=== PATIENT | female | born 1935 | race Caucasian/White ===

== ENCOUNTER 2016-04-09 09:20 | Inpatient (IN) | payer OTHER, MEDICARE ==
[~2016-04-09] VITALS: Ht 162.6 cm; Wt 74.9 kg
--- NOTE | 2016-04-09 09:26 | ED GI/GU/ABDOMINAL COMPLAINT ---
History of Present Illness General Chief Complaint: General Adult Stated Complaint: BIBA FOR DIARRHEA Source: patient, family, old records, EMS Exam Limitations: no limitations Triage Nurses Notes Reviewed? yes ? n Is pt currently ? No Onset: Abrupt Duration: day(s): (3), constant Timing: recent history Quality/Severity: cramping Severity Numbers: 6 Location: generalized abdomen Radiation: no radiation Activities at Onset: none No Modifying Factors: none Associated Symptoms: lightheadedness HPI: 81 year old female history of hypertension, coronary artery disease, hyperlipidemia, GERD, bipolar disorder, Parkinson's, psoriasis presents brought in by an once from assisted living after she's had multiple episodes of diarrhea for the past 3 days having at least 2-3 episodes a day. She denies any black or bloody stools she reports a crampy abdominal pain associated with the diarrhea, denies pain at this time. There is no nausea no vomiting. Patient denies fever chills cough and congestion chest pain shortness of breath. There are no modifying factors or associated symptoms or recent antibiotic use. No sick contacts with similar symptoms. Abdominal history significant for cholecystectomy. Pain is nonradiating associated with lightheadedness (SURESH ARROYO) Vital Signs & Intake/Output Vital Signs & Intake/Output Vital Signs Date Time Temp Pulse Resp B/P Pulse O2 O2 Flow FiO2 Ox Delivery Rate 04/09 1258 99.7 04/09 1254 99.7 97 18 106/56 96 Room Air 04/09 1108 99.8 04/09 1100 99.8 93 15 104/56 97 Room Air Room Air 04/09 1057 97 Room Air Room Air 04/09 0955 101.4 94/56 04/09 0930 99.9 108 18 99/52 100 Nasal 2.0L Cannula Allergies Coded Allergies: adhesive tape (UNKNOWN 04/09/16) codeine (UNKNOWN 04/09/16) hydrocortisone (UNKNOWN 04/09/16) prednisone (UNKNOWN 04/09/16) Reconcile Medications Aspirin (Aspirin*) 81 MG TAB.CHEW 1 TAB PO DAILY HEART HEALTH (Reported) Atorvastatin Calcium (Lipitor) 20 MG TABLET 1 TAB PO QPM CHOLESTEROL ( Reported) Carbidopa/Levodopa (Sinemet Cr 50-200 Tablet) 50 MG-200 MG TABLET.ER 1 TAB PO TID PARKINSONS (Reported) Donepezil HCl (Aricept) 10 MG TABLET 1 TAB PO QPM DEMENTIA (Reported) Gabapentin (Neurontin) 400 MG CAPSULE 1 CAP PO TID UNKNOWN (Reported) Lamotrigine (Lamictal) 200 MG TABLET 1 TAB PO BID UNKNOWN (Reported) Levetiracetam (Keppra) 250 MG TABLET 1 TAB PO DAILY SEIZURES (Reported) Linaclotide (Linzess) 145 MCG CAPSULE 1 CAP PO DAILY GI (Reported) Lorazepam (Ativan) 0.5 MG TABLET 1 TAB PO DAILY ANXIETY (Reported) Memantine HCl (Namenda) 5 MG TABLET 1 TAB PO BID DEMENTIA (Reported) Omeprazole 40 MG CAPSULE.DR 1 CAP PO DAILY GI (Reported) Quetiapine Fumarate (Seroquel) 400 MG TABLET 1 TAB PO QPM SLEEP (Reported) Quetiapine Fumarate (Seroquel) 100 MG TABLET 2 TAB PO QPM SLEEP (Reported) Quetiapine Fumarate (Seroquel) 25 MG TABLET 1 TAB PO TIDPRN PRN MOOD ( Reported) Ziprasidone HCl (Geodon) 80 MG CAPSULE 1 CAP PO DAILY UNKNOWN (Reported) (STARLA VELA,SHE Nunes) Past History Travel History Traveled to [place] past 21 day No Medical History Any Pertinent Medical History? see below for history Neurological: dementia, Parkinson's disease Cardiovascular: CAD, hypertension Influenza Vaccine: 11/11/10 Surgical History Surgical History: cholecystectomy Psychosocial History Who do you live with Spouse Services at Home None What is your primary language Georgian Family History Hx Contributory? No (SURESH ARROYO) Review of Systems Review of Systems Constitutional: Reports: no symptoms, see HPI. All Other Systems: Reviewed and Negative Comments Review of systems: See HPI, All other systems negative. Constitutional, no chills no fever, no malaise HEENT: No visual changes no sore throat no congestion Cardiovascular: No chest pain , no palpitation , Skin, no jaundice no rashes, no change in skin Respiratory: No dyspnea no cough no sputum no hemoptysis GI: No nausea no vomiting, diarrhea, no bloating/constipation : No dysuria No hematuria, no frequency, no discharge Muscle skeletal: No joint pain, no joint swelling, no back pain, no neck pain, Neurologic:no headache Psych: No stress Heme/endocrine: No bruising no bleeding Immunology: No lymphadenopathy (SURESH ARROYO) Physical Exam Physical Exam General Appearance: well developed/nourished, alert, awake Gastrointestinal: soft, non-tender Comments: Well-developed well-nourished person in no acute distress HEENT: Normal EENT exam; PERRL, EOMI, no nystagmus. HEAD is atraumatic. moist mucous membranes. Neck: Supple, normal range of motion without pain or tenderness Back: Nontender, no CVA tenderness. Full range of motion Cardiovascular: Regular rate and rhythms no murmurs rubs Respiratory: Chest nontender.There were no bony deformities, no asymmetry. No respiratory distress. Patient speaking in full complete sentences. Breath sounds clear to auscultation bilaterally: NO W/R/R Abdomen: Soft, nontender nondistended, no appreciable organomegaly. Normal bowel sounds. No rebound/guarding, No appreciable enlargement of the abdominal aorta, No ascites. Rectal: Nontender. Heme negative stool. No mass/hemorrhoid, no fissure. Extremity: No edema, full range of motion of extremities, normal and equal pulses bilaterally, 5 out of 5 strength noted to bilateral upper and lower extremities Neuro: Alert oriented x3, motor sensory normal, There were no obvious focal neurologic abnormalities. Skin: No appreciable rash on exposed skin, skin is warm and dry. Psych: Mood and affect is normal, memory and judgment is normal. Core Measures ACS in differential dx? No Severe Sepsis Present: Yes BC x2: Yes Lactic Acid x2: Yes IV ABX Broad Spectrum: Yes NS/LR Started: Yes Septic Shock Present: No (DEMETRIA JAMES,SURESH) Progress Differential Diagnosis: AAA, appendicitis, biliary colic, bowel obstruction, colon cancer, diverticulitis, gastritis, hepatitis, ischemic bowel, inflamm bowel dis, kidney stone, pancreatitis, malignancy, cdiff, colitis, diverticulitis, dehydration, electrolyte abnoramlity Diagnostic Imaging: Viewed by Me: CT Scan. Discussed w/RAD: CT Scan. Radiology Impression: PATIENT: TANMAY BAUER PRESENT AGE: 81 PATIENT ACCOUNT NO: [id number] : 36 LOCATION: [facility] ORDERING PHYSICIAN: SURESH JAMES SERVICE DATE: 04/09/16 EXAM TYPE: CAT - CT ABD & PELVIS W/O IV CONTRAS EXAMINATION: CT ABDOMEN AND PELVIS WITHOUT CONTRAST CLINICAL INFORMATION: Diarrhea. COMPARISON: 04/29/[address] TECHNIQUE: Multidetector volumetric imaging was performed from the superior aspect of the liver through the pubic symphysis. Sagittal and coronal reformatted images were obtained on the technologist's workstation. DLP: 395 mGy -cm FINDINGS: LUNG BASES: Trace right pleural and pericardial effusion. LIVER, GALLBLADDER, AND BILIARY TREE: Pneumobilia status post cholecystectomy and sphincterotomy. There is a 6.7 cm cyst in the right hepatic lobe and a 3.4 cm cyst in the left hepatic lobe, both of which measure simple fluid density. There is a subcentimeter subcapsular hypodensity of the left lobe which is too small to characterize although likely represents a cyst as well. Multiple surgical clips in the gallbladder fossa. The common bile duct measures 1.3 cm in diameter likely due to the post cholecystectomy state and patient age. Ductal dilatation has slightly decreased since 04/29/2011. No intraluminal filling defects are demonstrated. PANCREAS: Unremarkable. SPLEEN: Unremarkable. ADRENAL GLANDS: Unremarkable. KIDNEYS AND URETERS: There is a 2.6 cm simple fluid density cyst at the upper pole of the left kidney. No hydronephrosis. No renal or ureteral calculi. BLADDER: Unremarkable. GASTROINTESTINAL TRACT: Diffuse fluid-filled small and large bowel loops. No bowel dilatation to suggest obstruction. No focal inflammatory process. ABDOMINAL WALL: Calcification of presumed hernia repair mesh of the upper abdomen. This is located just distal to a 10 mm defect in the midline ventral abdominal wall where there is herniation of fat measuring approximately 3.6 x 3.8 x 1.4 cm. No inflammatory stranding or sign of complication. This is similar to the previous study. LYMPH NODES: Normal. VASCULAR: Atherosclerotic calcifications of the abdominal aorta. PELVIC VISCERA: The uterus is absent. OSSEOUS STRUCTURES: No suspicious bone lesions. Advanced facet arthropathy of the distal lumbar spine. No acute osseous abnormality. IMPRESSION: Small and large bowel loops are diffusely fluid filled with no dilatation to suggest obstruction. No focal inflammatory process. DICTATED BY: ANGELA PARK MD DATE/TIME DICTATED:04/09/161108 LEARNING AND DEVELOPMENT ADMINISTRATOR: VLADIMIR DATE/TIME TRANSCRIBED:04/09/161108 CONFIDENTIAL, DO NOT COPY WITHOUT APPROPRIATE AUTHORIZATION. <Electronically signed in Other Vendor System> SIGNED BY: ANGELA PARK MD 04/09/16 1136 Initial ED EKG: SINUS TACH AT 100, NONSPECIFIC st SEGMENT CHANGES NORMAL AXIS Prior EKG: unchanged (04/2011) Rhythm Strip: sinus tachycardia (SURESH ARROYO) Plan of Care: Orders Procedure Date/time Status Nothing by Mouth 04/09 D Active Admit to inpatient 04/09 1401 Active TRC EVALUATION (GEN) 04/09 1356 Active OXYGEN SETUP (GEN) 04/09 1356 Active Pathway - chart 04/09 1356 Active House Staff 04/09 1356 Active Patient Data 04/09 1356 Active Code Status 04/09 1356 Active Patient Data 04/09 1334 Active Add-on Test (ER Only) 04/09 1327 Active LACTIC ACID 04/09 1225 Complete RAPID VIRAL INFLUENZA A 04/09 1046 Complete MAGNESIUM 04/09 1042 Complete BLOOD CULTURE 04/09 1005 Active URINALYSIS 04/09 1005 Complete PARTIAL THROMBOPLASTIN TIME 04/09 0926 Complete PROTHROMBIN TIME 04/09 0926 Complete Saline Lock 04/09 0925 Active CULTURE,STOOL 04/09 0925 Active C.DIFFICILE 04/09 0925 Active TROPONIN LEVEL 04/09 0925 Complete LACTIC ACID 04/09 0925 Complete COMPREHENSIVE METABOLIC PANEL 04/09 0925 Complete CBC WITHOUT DIFFERENTIAL 04/09 0925 Complete EKG 04/09 0925 Active VTE Mechanical Prophylaxis 04/09 UNK Active Vital Signs 04/09 UNK Active MISTAKE 04/09 UNK Active Telemetry/[employer] Operator 04/09 UNK Active Intake & Output 04/09 UNK Active Hemoccult 04/09 UNK Active Laboratory Tests 04/09/16 1239: Lactic Acid 1.8 04/09/16 1042: Anion Gap 14, Estimated GFR 53 L, BUN/Creatinine Ratio 56.0 H, Glucose 132 H, Lactic Acid 2.3 H, Calcium 8.6, Magnesium 1.5 L, Total Bilirubin 0.5, AST 28, ALT 23, Alkaline Phosphatase 50, Troponin I 0.05, Total Protein 5.6 L, Albumin 3.4 L, Globulin 2.2, Albumin/Globulin Ratio 1.5 04/09/16 1000: PT 13.0 H, INR 1.24 H, APTT 29, CBC w Diff MAN DIFF ORDERED, RBC 4.05 L, MCV 93.5, MCH 31.1 H, RDW 15.3 H, MPV 8.1, Gran % 84.6 H, Lymphocytes % 3.7 L, Monocytes % 11.6 H, Eosinophils % 0, Basophils % 0.1, Absolute Granulocytes 6.5 , Segmented Neutrophils 34 L, Band Neutrophils 34 H, Absolute Lymphocytes 0.3 L, Lymphocytes 9 L, Monocytes 16 H, Absolute Monocytes 0.9 H, Absolute Eosinophils 0, Absolute Basophils 0, Metamyelocytes 6 H, Myelocytes 1 H, Platelet Estimate ADEQUATE, Normochromic RBCs VERIFIED, Poikilocytosis 1+, Jose Cells RARE, Schistocytes RARE, PUBS MCHC 33.3, Fld Total RBCs Counted 100, Urinalysis LIGHT H, Urine Color YEL, Urine Clarity CLEAR, Urine pH 6.0, Ur Specific [place] >= 1.030, Urine Protein 30 H, Urine Ketones TRACE H, Urine Nitrite NEG, Urine Bilirubin NEG, Urine Urobilinogen 0.2, Ur Leukocyte Esterase NEG, Ur Microscopic SEDIMENT EXAMINED, Urine RBC RARE, Urine Bacteria FEW H, Hyaline Casts RARE H, Urine Mucus FEW, Urine Hemoglobin NEG, Urine Glucose NEG Microbiology 04/09 1104 NASOPHARYN: Influenza Virus A & B Rapid Smear - COMP 04/09 1042 BLOOD: Blood Culture - RECD 04/09 1000 STOOL: Clostridium difficile Toxin A & B - RECD 04/09 1000 STOOL: Stool Culture - RECD 04/09 1000 BLOOD: Blood Culture - RECD Labs ordered old records reviewed IV fluids ordered Case discussed with Dr. Marie who evaluated the patient agrees with plan, given bandemia, fever Tylenol IV Rocephin and Flagyl IV ordered. I discussed the patient and her family at length all her results today pending CAT scan Case is discussed the hospitalist will admit, discussed the patient's family her CT results need for nothing by mouth status IV fluids patient resting couplets time she has not had any further episodes of diarrhea here in the department (DEMETRIA JAMES,SURESH) Comments: 04/09/2016 11:01:49 AM patient's blood pressure has normalized with IV fluid. (STARLA VELA,SHE Nunes) Departure Departure Time of Disposition: 1239 Disposition: STILL A PATIENT Condition: Stable Clinical Impression Primary Impression: Diarrhea Secondary Impressions: Bandemia, Lactic acidosis Referrals: NATI SANTORO MD (PCP/Family) Departure Forms: Customer Survey General Discharge Information Admission Note Spoke With: SAUMYA VELA,RASHAD De Santiago Documentation of Exam: Documentation of any treatments & extenuating circumstances including Concerns Regarding Discharge (functional status, medication knowledge or non-compliance, living conditions, etc.) that warrant an admission rather than observation: [ Trend labs stool cultures C. difficile IV antibiotics IV fluids premature discharge would BE medically harmful (SURESH ARROYO) PA/ROCK DUSTER Co-Sign Statement Statement: ED Attending supervision documentation- [X] I saw and evaluated the patient. I have also reviewed all the pertinent lab results and diagnostic results. I agree with the findings and the plan of care as documented in the PA's/ROCK DUSTER's documentation. [] I have reviewed the ED Record and agree with the PA's/ROCK DUSTER's documentation. [] Additions or exceptions (if any) to the PAs/ROCK DUSTER's note and plan are summarized below: [] (STARLA VELA,SHE Nunes) ED Sepsis Exam Date of Focused Sepsis Exam: 04/09/16 Time of Focused Sepsis Exam: 1240 Sepsis Cardiac Exam: Tachycardia Sepsis Resp Exam: CTA Sepsis Cap Refill Exam: <2 Sec Sepsis Peripheral Pulse Exam: Normal Sepsis Peripheral Pulse Location: Radial Sepsis Skin Color Exam: Normal for Ethnicity Skin Temp/Moisture Exam: Warm/Dry (SURESH ARROYO)
[2016-04-09] MEDS ORDERED: ARICEPT10 M1 PO (09:37)
[2016-04-09] MEDS ORDERED: NAMENDA5 M1 PO (09:37)
[2016-04-09] MEDS ORDERED: SINEMET CR 50-1 EACH PO (09:38)
[2016-04-09] MEDS ORDERED: NEURONTIN400 M1 PO (09:38)
[2016-04-09] MEDS ORDERED: KEPPRA250 M1 PO (09:39)
[2016-04-09] MEDS ORDERED: GEODON80 MG PO (09:39)
[2016-04-09] MEDS ORDERED: ATIVAN0.5 M1 PO (09:39)
[2016-04-09] MEDS ORDERED: LIPITOR20 M2 PO (09:40)
[2016-04-09] MEDS ORDERED: LAMICTAL200 M1 PO ×2 (09:40→15:53)
[2016-04-09] MEDS ORDERED: ASPIRIN81 M4 PO (09:40)
[2016-04-09] MEDS ORDERED: OMEPRAZOLE40 M1 PO (09:41)
[2016-04-09] MEDS ORDERED: SEROQUEL400 M1 PO (09:41)
[2016-04-09] MEDS ORDERED: LINZESS145 MC1 PO (09:41)
[2016-04-09] MEDS ORDERED: SEROQUEL100 M1 PO (09:42)
[2016-04-09] MEDS ORDERED: SEROQUEL25 M1 PO (09:42)
[2016-04-09 10:20] LABS: ABSOLUTE BASOPHIL COUNT 0 /CUMM (0.0-0.2); ABSOLUTE EOSINOPHIL COUNT 0 /CUMM (0.0-0.7); ABSOLUTE GRANULOCYTE CT 6.5 /CUMM (1.4-6.5); ABSOLUTE LYMPH COUNT 0.3 /CUMM (1.2-3.4); ABSOLUTE MONOCYTE COUNT 0.9 /CUMM (0.10-0.60); BASOPHIL % 0.1 % (0.0-2.0); EOSINOPHIL % 0 % (0-5); GRANULOCYTE % 84.6 % (42.2-75.2); HEMATOCRIT 37.9 % (37-47); MEAN CORPUSCULAR HGB 31.1 PG (27.0-31.0); MEAN CORPUSCULAR HGB CONC 33.3 G/DL (33.0-37.0); MEAN CORPUSCULAR VOLUME 93.5 FL (81.0-99.0); MEAN PLATELET VOLUME 8.1 FL (7.4-10.4); PLATELET COUNT 220 /CUMM (130-400); RBC DISTRIBUTION WIDTH 15.3 % (11.5-14.5); RED BLOOD CELL CT 4.05 /CUMM (4.20-5.40); WHITE BLOOD CELL COUNT 7.7 /CUMM (4.8-10.8)
[2016-04-09 10:35] LABS: PTT 29 SEC (25-37)
--- NOTE | 2016-04-09 11:36 | CT SCAN REPORT ---
EXAMINATION: CT ABDOMEN AND PELVIS WITHOUT CONTRAST CLINICAL INFORMATION: Diarrhea. COMPARISON: 04/29/[address] TECHNIQUE: Multidetector volumetric imaging was performed from the superior aspect of the liver through the pubic symphysis. Sagittal and coronal reformatted images were obtained on the technologist's workstation. DLP: 395 mGy-cm FINDINGS: LUNG BASES: Trace right pleural and pericardial effusion. LIVER, GALLBLADDER, AND BILIARY TREE: Pneumobilia status post cholecystectomy and sphincterotomy. There is a 6.7 cm cyst in the right hepatic lobe and a 3.4 cm cyst in the left hepatic lobe, both of which measure simple fluid density. There is a subcentimeter subcapsular hypodensity of the left lobe which is too small to characterize although likely represents a cyst as well. Multiple surgical clips in the gallbladder fossa. The common bile duct measures 1.3 cm in diameter likely due to the post cholecystectomy state and patient age. Ductal dilatation has slightly decreased since 04/29/2011. No intraluminal filling defects are demonstrated. PANCREAS: Unremarkable. SPLEEN: Unremarkable. ADRENAL GLANDS: Unremarkable. KIDNEYS AND URETERS: There is a 2.6 cm simple fluid density cyst at the upper pole of the left kidney. No hydronephrosis. No renal or ureteral calculi. BLADDER: Unremarkable. GASTROINTESTINAL TRACT: Diffuse fluid-filled small and large bowel loops. No bowel dilatation to suggest obstruction. No focal inflammatory process. ABDOMINAL WALL: Calcification of presumed hernia repair mesh of the upper abdomen. This is located just distal to a 10 mm defect in the midline ventral abdominal wall where there is herniation of fat measuring approximately 3.6 x 3.8 x 1.4 cm. No inflammatory stranding or sign of complication. This is similar to the previous study. LYMPH NODES: Normal. VASCULAR: Atherosclerotic calcifications of the abdominal aorta. PELVIC VISCERA: The uterus is absent. OSSEOUS STRUCTURES: No suspicious bone lesions. Advanced facet arthropathy of the distal lumbar spine. No acute osseous abnormality. IMPRESSION: Small and large bowel loops are diffusely fluid filled with no dilatation to suggest obstruction. No focal inflammatory process.
--- NOTE | 2016-04-09 13:56 | History & Physical ---
NIYAH DE LA TORRE MD 04/09/16 1356: General Information and HPI MD Statement: I have seen and personally examined TANMAY MORENO and documented this H&P. The patient is a 81 year old F who presented with a patient stated chief complaint of diarrhea and vomiting. Source of Information: patient, family, old records Exam Limitations: dementia, poor historian History of Present Illness: Ms. Moreno is a pleasant 81 year old female with PMH Parkinson's dementia, anxiety disorder, history of restless leg syndrome, HTN, HLD, CAD and GERD who was brought in from her assisted living facility with chief complaint of nausea, vomiting and diarrhea. History is limited secondary to history of Parkinson's dementia and daughter who is present in the room is only able to provide occasional information. Patient and daughter note that on Saturday, patient had two episodes of nausea and non-bloody emesis in the morning. This progressed to generalized abdominal cramping with two further episodes of vomiting. Her facility placed her on the BRAT diet but patient then began to have copious, non-bloody diarrhea. Paige reports that the diarrhea was continuous, patient woke up this morning in it and it even fell down her legs as she attempted to ambulate. There is no history of recent antibiotic use, recent change in medications, sick contacts or new food intake. Associated symptoms at time of presentation include anxiety, nausea, generalized abdominal cramping, bloating, the prior 4 episodes of vomiting, persistent diarrhea and fever. Patient currently denies chills, dizziness, dehydration, chest pain, palpitations, shortness of breath, sputum production, dysuria, hematuria or bloody stool. Social history is negative for alcohol or illicit drug use. Patient quit smoking years ago and only smoked 1/2 ppd for about 4 years in total. Patient lives at her assisted-living facility and requires assistance with some of her ADLs. Patient sees Dr. Boone as her neurologist and has seen Dr. Mcadams in the past for cardiac issues. Allergies/Medications Allergies: Coded Allergies: adhesive tape (UNKNOWN 04/09/16) codeine (UNKNOWN 04/09/16) hydrocortisone (UNKNOWN 04/09/16) prednisone (UNKNOWN 04/09/16) Compliance With Home Meds: UNKNOWN Past History Travel History Traveled to [place] past 21 day No Medical History Neurological: dementia, Parkinson's disease Cardiovascular: CAD, hypertension Psychiatric: anxiety depression Influenza Vaccine: 11/11/10 Surgical History Surgical History: cholecystectomy Past Family/Social History Psychosocial History Where do you live? Assisted Living Who Do You Live With? self Services at Home: None Primary Language: Czech Smoking Status: Former Smoker ETOH Use: denies use Illicit Drug Use: denies illicit drug use Living Will? yes Review of Systems Review of Systems Constitutional: Reports: fever, malaise. Denies: chills, unexplained weight loss. EENTM: Denies: visual changes, hearing changes, nasal congestion. Cardiovascular: Denies: chest pain, orthopena, palpitations, syncope. Respiratory: Denies: cough, short of breath, sputum production. GI: Reports: abdominal pain, bloating, diarrhea. Denies: constipation. Genitourinary: Denies: dysuria, hematuria, pain. Musculoskeletal: Denies: back pain. Skin: Denies: lesions, rash. Neurological/Psychological: Reports: anxiety, dementia. Denies: headache, numbness, paresthesia. Hematologic/Endocrine: Denies: polyuria, polydipsia. Immunologic/Allergic: Denies: splenectomy. All Other Systems: Reviewed and Negative Exam & Diagnostic Data Last 24 Hrs of Vital Signs/I&O Vital Signs Date Time Temp Pulse Resp B/P Pulse O2 O2 Flow FiO2 Ox Delivery Rate 04/09 1428 105 18 118/57 98 Room Air 04/09 1258 99.7 04/09 1254 99.7 97 18 106/56 96 Room Air 04/09 1108 99.8 04/09 1100 99.8 93 15 104/56 97 Room Air Room Air 04/09 1057 97 Room Air Room Air 04/09 0955 101.4 94/56 04/09 0930 99.9 108 18 99/52 100 Nasal 2.0L Cannula Intake & Output 04/09 1600 04/09 0800 04/09 0000 Intake Total Output Total 300 Balance -300 Output, Urine 300 Physical Exam General Appearance Alert, Oriented X3, Cooperative, No Acute Distress Skin No Rashes, No Significant Lesion HEENT Atraumatic, PERRLA, EOMI, Dry mucous membranes Neck Supple, No thryomegaly, +2 Carotid Pulse wo Bruit Lymphatic Cervical nl Cardiovascular Regular Rate, Normal S1, Normal S2 Lungs Clear to Auscultation, Normal Air Movement Abdomen Normal Bowel Sounds, Mildly distended, + tenderness in epigastric and RLQ, no massess or fluctuance. Neurological Normal Speech, Normal Tone Extremities No Clubbing, No Cyanosis, No Edema, No Tenderness/Swelling Vascular Pulses Symmetrical Last 24 Hrs of Labs/[place]: Laboratory Tests 04/09/16 1239: Lactic Acid 1.8 04/09/16 1042: Anion Gap 14, Estimated GFR 53 L, BUN/Creatinine Ratio 56.0 H, Glucose 132 H, Lactic Acid 2.3 H, Calcium 8.6, Magnesium 1.5 L, Total Bilirubin 0.5, AST 28, ALT 23, Alkaline Phosphatase 50, Troponin I 0.05, Total Protein 5.6 L, Albumin 3.4 L, Globulin 2.2, Albumin/Globulin Ratio 1.5 04/09/16 1000: PT 13.0 H, INR 1.24 H, APTT 29, CBC w Diff MAN DIFF ORDERED, RBC 4.05 L, MCV 93.5, MCH 31.1 H, RDW 15.3 H, MPV 8.1, Gran % 84.6 H, Lymphocytes % 3.7 L, Monocytes % 11.6 H, Eosinophils % 0, Basophils % 0.1, Absolute Granulocytes 6.5 , Segmented Neutrophils 34 L, Band Neutrophils 34 H, Absolute Lymphocytes 0.3 L, Lymphocytes 9 L, Monocytes 16 H, Absolute Monocytes 0.9 H, Absolute Eosinophils 0, Absolute Basophils 0, Metamyelocytes 6 H, Myelocytes 1 H, Platelet Estimate ADEQUATE, Normochromic RBCs VERIFIED, Poikilocytosis 1+, [place] Cells RARE, Schistocytes RARE, PUBS MCHC 33.3, Fld Total RBCs Counted 100, Urinalysis LIGHT H, Urine Color YEL, Urine Clarity CLEAR, Urine pH 6.0, Ur Specific Aylett >= 1.030, Urine Protein 30 H, Urine Ketones TRACE H, Urine Nitrite NEG, Urine Bilirubin NEG, Urine Urobilinogen 0.2, Ur Leukocyte Esterase NEG, Ur Microscopic SEDIMENT EXAMINED, Urine RBC RARE, Urine Bacteria FEW H, Hyaline Casts RARE H, Urine Mucus FEW, Urine Hemoglobin NEG, Urine Glucose NEG Microbiology 04/09 1104 NASOPHARYN: Influenza Virus A & B Rapid Smear - COMP 04/09 1042 BLOOD: Blood Culture - RECD 04/09 1000 STOOL: Clostridium difficile Toxin A & B - RES 04/09 1000 STOOL: Stool Culture - RES 04/09 1000 BLOOD: Blood Culture - RECD Diagnostic Data EKG Results Sinus tachycardia, HR 107, QTC 433, ST depressions in I and aVL. Other Results EXAMINATION: CT ABDOMEN AND PELVIS WITHOUT CONTRAST CLINICAL INFORMATION: Diarrhea. COMPARISON: 04/29/[address] TECHNIQUE: Multidetector volumetric imaging was performed from the superior aspect of the liver through the pubic symphysis. Sagittal and coronal reformatted images were obtained on the technologist's workstation. DLP: 395 mGy-cm FINDINGS: LUNG BASES: Trace right pleural and pericardial effusion. LIVER, GALLBLADDER, AND BILIARY TREE: Pneumobilia status post cholecystectomy and sphincterotomy. There is a 6.7 cm cyst in the right hepatic lobe and a 3.4 cm cyst in the left hepatic lobe, both of which measure simple fluid density. There is a subcentimeter subcapsular hypodensity of the left lobe which is too small to characterize although likely represents a cyst as well. Multiple surgical clips in the gallbladder fossa. The common bile duct measures 1.3 cm in diameter likely due to the post cholecystectomy state and patient age. Ductal dilatation has slightly decreased since 04/29/2011. No intraluminal filling defects are demonstrated. PANCREAS: Unremarkable. SPLEEN: Unremarkable. ADRENAL GLANDS: Unremarkable. KIDNEYS AND URETERS: There is a 2.6 cm simple fluid density cyst at the upper pole of the left kidney. No hydronephrosis. No renal or ureteral calculi. BLADDER: Unremarkable. GASTROINTESTINAL TRACT: Diffuse fluid-filled small and large bowel loops. No bowel dilatation to suggest obstruction. No focal inflammatory process. ABDOMINAL WALL: Calcification of presumed hernia repair mesh of the upper abdomen. This is located just distal to a 10 mm defect in the midline ventral abdominal wall where there is herniation of fat measuring approximately 3.6 x 3.8 x 1.4 cm. No inflammatory stranding or sign of complication. This is similar to the previous study. LYMPH NODES: Normal. VASCULAR: Atherosclerotic calcifications of the abdominal aorta. PELVIC VISCERA: The uterus is absent. OSSEOUS STRUCTURES: No suspicious bone lesions. Advanced facet arthropathy of the distal lumbar spine. No acute osseous abnormality. IMPRESSION: Small and large bowel loops are diffusely fluid filled with no dilatation to suggest obstruction. No focal inflammatory process. Assessment/Plan Assessment: Ms. Moreno is an 81 year old female with PMH Parkinson's dementia, anxiety disorder, HTN, HLD, CAD, GERD and restless leg syndrome who presents from an assisted living facility with chief complaint of nausea, vomiting and diarrhea. The vomiting started on Saturday, was non-bloody and progressed throughout the day to include generalized abdominal pain, non-bloody diarrhea and fever. Of note, prior to transport to the emergency room, patient was noted to be eating her feces. In the ED: Vital signs showed T 101.4 (rectal), HR 108, RR 18, BP 99/52 and O2 saturation of 97% on RA. Labs showed WBC 7.7 with 34 bands, H&H 12.6/37.9, Plt 220, and BEP significant for hypokalemia to 2.8 and BUN 56. Lactic acid high to 2.3. Mag low to 1.5. INR elevated to 1.24. Abdominal/pelvis CT was done and showed small and large bowel loops diffusely fluid filled with no obstruction and no focal inflammatory process. Stool guiac done in the ED was negative. Patient is admitted to the telemetry floor and the following is the management: 1. Severe sepsis with intra-abdominal pathology * Patient febrile, has 34 bands, elevated lactic acid to 2.3 (hypokalemic metabolic acidosis) and nausea, vomiting, diarrhea * Patient given 1 L NS bolus, IV tylenol, IV ceftriaxone and IV flagyl in the ED * Blood culture x 2, stool culture and stool for Cdiff sent, f/u results * Rapid flu negative * Abdominal CT ruled out inflammatory process/SBO * Start with clear liquid diet and advance as tolerated * IV fluids to continue for severe sepsis * Hold Linzess for now in setting of diarrhea * Hold off antibiotics pending culture results 2. Hypokalemia and hypomagnesemia * K of 2.8 on admission, Mag of 1.5 * Patient given 10 meq IV x 1 of KCl * 1 gm IV Mag ordered for hypomagnesemia * 40 mg PO BID Kdur * F/U repeat BEP and replete as needed 3. ST depressions, lateral leads * Cardio consult with Dr. Mcadams placed and appreciated, f/u rec's * First troponin/EKG negative in the ED * Will rule out ACS with 2 more troponins/EKGs at 4pm, 10 pm * Continue ASA daily 4. Elevated BUN * BUN 56 with normal cre to 1.0 * Stool guiac done in ED, no current evidence of GI bleeding, no prior history of GI bleeding * Follow up BEP after rehydration 5. Parkinson's dementia and severe bipolar disorder with psychosis * Patient showing signs of severe anxiety on admission, no SI/HI * Continue all home medications DNR/DNI Clear Liquid diet Mild Pain Pathway DVTP: Mech & Pharm As Ranked By This Provider Problem List: 1. Anxiety disorder 2. Essential hypertension 3. Parkinson's disease 4. Restless leg syndrome 5. Diarrhea 6. Lactic acidosis 7. Bandemia 8. Hypokalemia Core Measures/Miscellaneous Acute Coronary Syndrome ACS Diagnosis: No Cerebrovascular Accident CVA/TIA Diagnosis: No Congestive Heart Failure CHF Diagnosis: No Venous Thromboembolism VTE Risk Factors: Acute medical illness, Age > 40, Obesity VTE Prophylaxis Ordered Inpt: Mech & Pharm No Mech VTE prophylaxis d/t: No contraindications No VTE Pharm Prophylaxis d/t: No contraindications VTE Diagnosis: No VTE Type: NONE VTE Confirmed by (Test): NONE Severe Sepsis Severe Sepsis Present: Yes BC x2: Yes Lactic Acid x2: Yes IV ABX Broad Spectrum: Yes NS/LR Started: Yes Septic Shock Septic Shock Present: No Miscellaneous Documentation Attending Case Discussed With: TUNDE FALLON M.D Primary Care Physician: NATI SANTORO MD Patient sees these Specialists Dr. Boone, Neurology Level of Patient Care: Telemetry TAJ LUNA 04/09/16 1409: Resident Review Statement Resident Statement: examined this patient, discussed with internal consultant, agreed with internal consultant, discussed with family, reviewed images Other Findings: This is a 81-year-old lady with past medical history significant for Parkinson's , bipolar disease with psychosis, hyperlipidemia, hypertension, GERD, chronic constipation, who presents to the hospital with nausea/vomiting/diarrhea for 3 days. Patient reports epigastric abdominal pain. She denies fever, chills, blood in vomitus or bowel movement. Please see above for further details. Vital signs on admission: Maximum temperature 11.4, pulse rate 108, respiratory rate 18, blood pressure 99/52, oxygen saturation 100% on 2 L nasal cannula oxygen Pertinent physical exam at the time of admission: NAD, AAO 3, HEENT: Dry mucous membrane, head NCAT, PERRLA, EOMI, neck: Supple, no JVD, no carotid bruit. Cardiovascular: RRR, no murmurs. Lungs: CTABL. Abdomen: Normal bowel sounds, soft, tenderness on palpation in epigastric and right lower quadrant region. No rebound, no guarding. Extremities, no edema, normal and symmetrical pulses. Neurology: CN 3-12 WNL, normal strength and reflexes. Available lab and diagnostic data reviewed. 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 difficile toxin sent; she received IV ceftriaxone and IV metronidazole in the ED, no need for antibiotic therapy at this point. * Patient received IV potassium chloride 10 meq in the ED, will start the patient on K-Dur 40 meq twice a day * Recheck labs and replete electrolytes accordingly * Cardiology consult was placed. * IV hydration; advance diet as tolerated. * Will continue all home medications except Linzess * DVT prophylaxis with subcutaneous heparin * DNI/DNR VASYL VELA,TUNDE 04/09/16 9860: General Information and HPI Allergies/Medications Home Med list Aspirin (Aspirin*) 81 MG TAB.CHEW 1 TAB PO DAILY HEART HEALTH (Reported) Atorvastatin Calcium (Lipitor) 20 MG TABLET 1 TAB PO QPM CHOLESTEROL ( Reported) Carbidopa/Levodopa (Sinemet Cr 50-200 Tablet) 50 MG-200 MG TABLET.ER 1 TAB PO TID PARKINSONS (Reported) Donepezil HCl (Aricept) 10 MG TABLET 1 TAB PO QPM DEMENTIA (Reported) Gabapentin (Neurontin) 400 MG CAPSULE 1 CAP PO TID BIPOLAR (Reported) Lamotrigine (Lamictal) 200 MG TABLET 2 TAB PO DAILY BIPOLAR (Reported) Levetiracetam (Keppra) 250 MG TABLET 1 TAB PO DAILY BIPOLAR (Reported) Linaclotide (Linzess) 145 MCG CAPSULE 1 CAP PO DAILY GI (Reported) Lorazepam (Ativan) 0.5 MG TABLET 1 TAB PO DAILY ANXIETY (Reported) Memantine HCl (Namenda) 5 MG TABLET 1 TAB PO BID DEMENTIA (Reported) Omeprazole 40 MG CAPSULE.DR 1 CAP PO DAILY GI (Reported) Quetiapine Fumarate (Seroquel) 400 MG TABLET 1 TAB PO QPM SLEEP (Reported) Quetiapine Fumarate (Seroquel) 100 MG TABLET 2 TAB PO QPM SLEEP (Reported) Quetiapine Fumarate (Seroquel) 25 MG TABLET 1 TAB PO TIDPRN PRN MOOD ( Reported) Ziprasidone HCl (Geodon) 80 MG CAPSULE 1 CAP PO DAILY BIPOLAR (Reported) Attending MD Review Statement Attending Statement Attending MD Statement: examined this patient, discuss w/resident/PA/FISH FRYER, agreed w/resident/PA/FISH FRYER, reviewed EMR data (avail), discussed with nursing, amended to note Attending Assessment/Plan: Patient is a pleasant 81-year-old female who presents with complaints of vomiting and diarrhea which began yesterday and has persisted since. She reports that 2 days ago she went out with family to eat. Her meal included a salad. She denies any other family members having similar symptoms. Due to decreased oral intake, abdominal cramping and increasing lethargy showed brought in for evaluation. She arrives a hemodynamically stable. Appreciated is only significant for hypokalemia of 2.8. Abdominal CT imaging shows no acute findings. Her EKG shows nonspecific ST depressions in leads 1 and aVL more present on previous EKGs. She denies chest pain or shortness of breath. She denies palpitations. First troponin is negative. On examination she is not in any acute distress. She appears lethargic. Heart sounds are regular. Lungs are clear bilaterally. Abdomen is nondistended soft with mild tenderness in the right lower quadrant and epigastric. No palpable organomegaly. She is noted to be febrile in the emergency room with temperature 101.4 Problems: 1. Acute gastroenteritis 2. Severe hypokalemia 3. EKG changes 4. Mild dementia 5. History of coronary artery disease 6. Bipolar disorder Plan: -Her symptoms are concerning for sepsis however no acute pathology noted at present. -She was started empirically on Flagyl emergency room however she has no history of antibiotic exposure to raise concern for C. difficile. She has no leukocytosis. Symptoms may be viral in etiology. -Follow up stool cutluers, WBC and c. diff toxin. -She is on Linzess for chronic constipation, which may indue diarrhea. Bryan hold for now. -Replete potassium orally as well as mahgnesium. Administer 40Meq twice daily. Repeat levels in am. -Trend troponins, repeat EKG in am and mionitor of telemetry to r/o ACS -Cardiology consultation for abnormal EKG r/o ischemia. -Contiinue cardiac regimen. Note that she is not on beta any therapy. -Continue dementia and bipolar regimen. -DVt prophylaxis withsubcut Heparin.
--- NOTE | 2016-04-09 16:01 | Admission Certification ---
Admission Certification Certification Statement - As attending physician, I certify that at the time of - admission, based on clinical presentation, severity of - symptoms, need for further diagnostic testing and - therapeutic interventions, and risk of adverse outcomes - without in-hospital treatment, in my clinical assessment, - this patient requires an acute hospital stay for a minimum - of two nights or longer. I have also considered psychsocial - factors such as support system, advanced age, financial - issues, cognitive issues, and failed out-patient treatments, - past re-admission history, safety of patient, and lack of - compliance as applicable. Specific rationale supporting this admission is: Patient will be admitted to the inpatient medical service for correction of her hypokalemia and further management of her diarrhea.
[2016-04-09 17:28] VITALS: BP 132/60
--- NOTE | 2016-04-09 21:50 | Event Note ---
Event Note Event Note: Spoke with daughter on 04/09/2015 at 21:45 regarding Ms. Moreno's Seroquel night time dose. Per daughter, dose is 600 mg the last time she checked. I called the pharmacy to verify but they were closed. Additionally, there is no pharmacy claim history on [employer]. Will dose the 600 mg tonight and will sign out to day team to verify dose with pharmacy in AM.
--- NOTE | 2016-04-09 21:53 | Cons- Cardiology ---
General Information and HPI Consulting Request Date of Consult: 04/09/16 Requested By: TUNDE FALLON M.D History of Present Illness: Tonja is a 81 year old female with a history of hypertension, dyslipidemia and coronary artery disease, s/p non-ST elevation OK in 1993. This OK in 1993 was followed by a cardiac catheterization which was negative for any obstructive coronary artery disease. The patient also carries a history of pancreatitis with an ERCP and Parkinsonian dementia. Yesterday, after going out to eat for her birthday, this patient experienced fecal incontinence accompanied by abdominal cramping and vomiting. At her baseline she can walk slowly but in general is not very active. She does report a chronic chest tightness and is noted to have ischemic ST depresssions in the high lateral leads. She otherwise denies shortness of breath, ligheadedness or palpitations. The patients potassium is noted to be low at 2.8. Allergies/Medications Allergies: Coded Allergies: adhesive tape (UNKNOWN 04/09/16) codeine (UNKNOWN 04/09/16) hydrocortisone (UNKNOWN 04/09/16) prednisone (UNKNOWN 04/09/16) Home Med List: Aspirin (Aspirin*) 81 MG TAB.CHEW 1 TAB PO DAILY HEART HEALTH (Reported) Atorvastatin Calcium (Lipitor) 20 MG TABLET 1 TAB PO QPM CHOLESTEROL ( Reported) Carbidopa/Levodopa (Sinemet Cr 50-200 Tablet) 50 MG-200 MG TABLET.ER 1 TAB PO TID PARKINSONS (Reported) Donepezil HCl (Aricept) 10 MG TABLET 1 TAB PO QPM DEMENTIA (Reported) Gabapentin (Neurontin) 400 MG CAPSULE 1 CAP PO TID BIPOLAR (Reported) Lamotrigine (Lamictal) 200 MG TABLET 2 TAB PO DAILY BIPOLAR (Reported) Levetiracetam (Keppra) 250 MG TABLET 1 TAB PO DAILY BIPOLAR (Reported) Linaclotide (Linzess) 145 MCG CAPSULE 1 CAP PO DAILY GI (Reported) Lorazepam (Ativan) 0.5 MG TABLET 1 TAB PO DAILY ANXIETY (Reported) Memantine HCl (Namenda) 5 MG TABLET 1 TAB PO BID DEMENTIA (Reported) Omeprazole 40 MG CAPSULE.DR 1 CAP PO DAILY GI (Reported) Quetiapine Fumarate (Seroquel) 400 MG TABLET 1 TAB PO QPM SLEEP (Reported) Quetiapine Fumarate (Seroquel) 100 MG TABLET 2 TAB PO QPM SLEEP (Reported) Quetiapine Fumarate (Seroquel) 25 MG TABLET 1 TAB PO TIDPRN PRN MOOD ( Reported) Ziprasidone HCl (Geodon) 80 MG CAPSULE 1 CAP PO DAILY BIPOLAR (Reported) Review of Systems Review of Systems: occasional feet swelling is reported Past History Travel History Traveled to [place] past 21 day No Medical History Blood Transfusion Hx: No Neurological: Parkinson's disease, restless leg syndrome EENT: NONE Cardiovascular: CAD (s/p NSTEMI), hypertension, hyperlipidemia Respiratory: NONE Gastrointestinal: GERD, pancreatitis, cholangitis s/p ERCP with sphincterotomy Hepatic: NONE Renal: NONE Musculoskeletal: NONE Psychiatric: bipolar disease, anxiety depression Endocrine: NONE Blood Disorders: NONE Cancer(s): NONE SOLE RUFFER/Reproductive: NONE Other Medical Hx: Hypertension, dyslipidemia, nonST elevation [place], bipolar disorder, anxiety, cholecystectomy, cholangitis secondary to ERCP and sphincterotomy in 1997, pancreatitis secondary to ERCP, bladder and rectal distention x 2, hysterectomy, repair of deviated septum, tonsillectomy, tarsal tunnel repair Surgical History Surgical History: cholecystectomy, hysterectomy, bladder and rectal surgery, repair of deviated septum, tonsillectomy, tarsal tunnel repair Psychosocial History Where Do You Live? Assisted Living Who Do You Live With? self Services at Home: None Primary Language: Mongolian Smoking Status: Former Smoker ETOH Use: denies use Illicit Drug Use: denies illicit drug use Living Will? yes Exam & Diagnostic Data Vital Signs and I&O Vital Signs Date Time Temp Pulse Resp B/P Pulse O2 O2 Flow FiO2 Ox Delivery Rate 04/09 1728 98.8 105 16 132/60 96 Room Air 04/09 1627 97.7 04/09 1531 109 20 114/59 98 Room Air 04/09 1428 105 18 118/57 98 Room Air 04/09 1258 99.7 04/09 1254 99.7 97 18 106/56 96 Room Air 04/09 1108 99.8 04/09 1100 99.8 93 15 104/56 97 Room Air Room Air 04/09 1057 97 Room Air Room Air 04/09 0955 101.4 94/56 04/09 0930 99.9 108 18 99/52 100 Nasal 2.0L Cannula Intake & Output 04/09 1600 04/09 0800 04/09 0000 04/08 1600 04/08 0800 04/08 0000 Intake Total Output Total 300 Balance -300 Output, Urine 300 Physical Exam: General: WD/ WN female in NAD; awake and responsive with decreased memory HEENT: NC/AT, PERRL, EOMI Neck: no JVD, no carotid bruit Heart: RRR with 2/6 systolic murmur Lungs: clear bilaterally Abdomen: soft, NT, +ve bowel sounds Extremties: no edema Assessment/Plan Assessment/Plan * This patient had diarrhea and vomiting with consequent hypokalemia. This diarrhea is likely related to a viral gastroenteritis. It is possible that the patient's chest discomfort is a musculoskeletal soreness related to vomiting but this would not explain the ischemic changes. I suspect that she has stable coronary artery disease and in the setting of dehydration from vomiting and diarrhea became tachycardic. This has increased myocardial demand. This patient should be on aspirin 81mg daily and continue her statin. If recurrent chest pain begin metoprolol 25mg BID. * This patient should have gentle hydration and replete her potassium to at least 4.0. She will need about 40 meq PO times two doses two hours apart for two days. * Obtain an echocardiogram and follow her cardiac enzymes x three sets. * check a TSH and free T4. Consult Acknowledgment - Thank you for your consult request.
[2016-04-09 23:49] VITALS: BP 124/60
--- NOTE | 2016-04-10 06:59 | PN- Housestaff ---
See Addendum Subjective Follow-up For: Viral gastroenteritis Dehydration Hypokalemia, hypomagnesemia ST depressions Tele-Events Since Last Visit: SR with HR 73-94, PACs noted, patient became tachycardic to 160s briefly at 3:42 am. Subjective: Patient seen and examined at bedside this AM. She continues to endorse weakness and lethargy as well as persistent diarrhea. She reports she had several episodes of large-volume, black diarrhea this morning requiring complete bed sheets and gown change. Patient also continues to endorse abdominal cramping. Review of Systems Constitutional: Reports: malaise, weakness. Denies: chills, fever. EENTM: Denies: visual changes, hearing changes, nasal congestion. Cardiovascular: Denies: chest pain, palpitations. Respiratory: Denies: cough, short of breath. Gastrointestinal: Reports: abdominal pain, bloating, diarrhea, distention. Denies: constipation, nausea, bloody stool, vomiting. Genitourinary: Denies: dysuria, hematuria. Musculoskeletal: Denies: back pain. Skin: Denies: rash. Neurological/Psychological: Reports: confusion. Denies: headache. Hematologic/Endocrine: Denies: bleeding. Objective Last 24 Hrs of Vital Signs/I&O Vital Signs Date Time Temp Pulse Resp B/P Pulse O2 O2 Flow FiO2 Ox Delivery Rate 04/10 0902 98.1 96 18 110/54 96 Room Air 04/09 2349 98.1 94 16 124/60 95 Room Air 04/09 1728 98.8 105 16 132/60 96 Room Air 04/09 1627 97.7 04/09 1531 109 20 114/59 98 Room Air 04/09 1428 105 18 118/57 98 Room Air 04/09 1258 99.7 04/09 1254 99.7 97 18 106/56 96 Room Air Intake & Output 04/10 1600 04/10 0800 04/10 0000 Intake Total 700 700 Output Total 400 750 Balance 300 -50 Intake, IV 600 250 Intake, Oral 100 450 Number 1 1 Bowel Movements Output, Urine 400 750 Physical Exam General Appearance: Alert, Oriented X3, Cooperative, No Acute Distress Skin: No Significant Lesion HEENT: Atraumatic, PERRLA, Dry mucous membranes Neck: Supple, +2 Carotid Pulse wo Bruit Lymphatic: Cervical nl Cardiovascular: Regular Rate, Normal S1, Normal S2, No Murmurs Lungs: Normal Air Movement Abdomen: Normal Bowel Sounds, Soft, Distention appreciated, slightly increased from yesterday (though patient reports it is the same) and generalized mild tenderness to all quadrants. No rebound or guarding. Neurological: Normal Speech, Normal Tone Extremities: No Clubbing, No Cyanosis, No Edema Vascular: Pulses Symmetrical Current Medications: Current Medications Sig/[place] Start time Last Medication Dose Route Stop Time Status Admin Acetaminophen 1,000 MG ONCE ONE 04/09 1100 DC 04/09 N/A 1 UNIT IV 04/09 1114 1108 Aspirin 81 MG DAILY 04/09 1557 AC 04/10 PO 0947 Atorvastatin Calcium 20 MG QPM 04/09 2200 AC 04/09 PO 2206 Carbidopa/Levodopa 1 TAB TID 04/09 1600 AC 04/10 PO 0948 Ceftriaxone Sodium 0 .STK-MED ONE 04/09 1124 DC .ROUTE Ceftriaxone Sodium 1,000 MG ONCE ONE 04/09 1115 DC 04/09 IV 04/09 1116 1129 Donepezil HCl 10 MG QPM 04/09 2200 AC 04/09 PO 2207 Gabapentin 400 MG TID 04/09 2200 AC 04/10 PO 0947 Heparin Sodium 0 .STK-MED ONE 04/09 1657 DC (Porcine) .ROUTE Heparin Sodium 5,000 UNIT Q8 04/09 1619 AC 04/10 (Porcine) SC 0502 Lamotrigine 400 MG DAILY 04/09 1559 AC 04/10 PO 0949 Levetiracetam 250 MG DAILY 04/09 1559 AC 04/10 PO 0947 Lorazepam 0 .STK-MED ONE 04/09 1636 DC PO Lorazepam 0.5 MG DAILY 04/09 1559 AC 04/10 PO 03/06 1558 0955 Magnesium Sulfate 1 GM ONCE ONE 04/09 1500 DC 04/09 Dextrose/Water 100 ML IV 04/09 1859 1548 Memantine 5 MG BID 04/09 2200 AC 04/10 PO 0947 Metronidazole 500 MG ONCE ONE 04/09 1115 DC 04/09 N/A 1 UNIT IV 04/09 1214 1142 Omeprazole 40 MG DAILY AC 04/09 1600 AC 04/10 PO 0627 Potassium Chloride 20 MEQ ONCE ONE 04/10 0415 DC 04/10 PO 04/10 0416 0501 Potassium Chloride 10 MEQ Q1H 04/10 0045 DC 04/10 IV 04/10 0146 0248 Potassium Chloride 60 MEQ ONCE ONE 04/10 0045 DC 04/10 PO 04/10 0046 0247 Potassium Chloride 40 MEQ BID 04/09 2200 DC 04/09 PO 2207 Potassium Chloride 40 MEQ ONCE ONE 04/09 1645 DC 04/09 PO 04/09 1646 1900 Potassium Chloride 10 MEQ ONCE ONE 04/09 1130 DC 04/09 IV 04/09 1131 1257 Quetiapine Fumarate 200 MG QPM 04/09 2200 CAN PO Quetiapine Fumarate 400 MG QPM 04/09 2200 DC PO Quetiapine Fumarate 600 MG QPM 04/09 2200 AC 04/09 PO 2207 Quetiapine Fumarate 25 MG TIDPRN PRN 04/09 1600 AC PO Sodium Chloride 1,000 ML Q13H 04/09 1715 AC 04/10 IV 0947 Ziprasidone 80 MG DAILY 04/09 1600 AC 04/10 PO 0955 Last 24 Hrs of Lab/[place] Results Last 24 Hrs of Labs/Mics: Laboratory Tests 04/10/16 0650: Anion Gap 7, Estimated GFR > 60, BUN/Creatinine Ratio 40.0 H, CBC w Diff NO MAN DIFF REQ, RBC 3.02 L, MCV 92.9, MCH 30.8, RDW 15.1 H, MPV 8.4, Gran % 74.1, Lymphocytes % 11.3 L, Monocytes % 11.6 H, Eosinophils % 2.7, Basophils % 0.3, Absolute Granulocytes 3.5, Absolute Lymphocytes 0.5 L, Absolute Monocytes 0.5, Absolute Eosinophils 0.1, Absolute Basophils 0, PUBS MCHC 33.1 04/09/16 2200: Magnesium 2.0, Troponin I 0.04 04/09/16 1625: Troponin I 0.04, TSH 0.243 L, Free T4 0.85 04/09/16 1239: Lactic Acid 1.8 Microbiology 04/10 0817 STOOL: Stool Culture - COLB Orders Radiology Findings: Abd/Pelvis CT: IMPRESSION: Small and large bowel loops are diffusely fluid filled with no dilatation to suggest obstruction. No focal inflammatory process. Assessment/Plan Assessment: Ms. Moreno is an 81 year old female with PMH Parkinson's dementia, anxiety disorder, HTN, HLD, CAD, GERD and restless leg syndrome who presents from an assisted living facility with chief complaint of nausea, vomiting and diarrhea. The vomiting started on Saturday, was non-bloody and progressed throughout the day to include generalized abdominal pain, non-bloody diarrhea and fever. Of note, prior to transport to the emergency room, patient was noted to be eating her feces. In the ED: Vital signs showed T 101.4 (rectal), HR 108, RR 18, BP 99/52 and O2 saturation of 97% on RA. Labs showed WBC 7.7 with 34 bands, H&H 12.6/37.9, Plt 220, and BEP significant for hypokalemia to 2.8 and BUN 56. Lactic acid high to 2.3. Mag low to 1.5. INR elevated to 1.24. Abdominal/pelvis CT was done and showed small and large bowel loops diffusely fluid filled with no obstruction and no focal inflammatory process. Stool guiac done in the ED was negative. Patient is admitted to the telemetry floor and the following is the management: 1. Likely viral gastroenteritis with possible sepsis * Patient febrile, had 34 bands, elevated lactic acid to 2.3 (hypokalemic metabolic acidosis) and nausea, vomiting, diarrhea on admission * Patient continues to have diarrhea, with 2 episodes so far this AM * Blood culture x 2 pending, stool culture shows mixed price after 1 day, CDiff negative, Shiga toxin negative * F/U stool fat lab results * Abdominal CT ruled out inflammatory process/SBO * Start with clear liquid diet and advance as tolerated * IV fluids to continue for now as patient appears clinically dehydrated * Hold Linzess for now in setting of diarrhea * Hold off antibiotics pending culture results 2. Hypokalemia and hypomagnesemia * K of 2.8 and Mag of 1.5 on admission, s/p repletion * K level has returned to normal at 4.5, Mg normal to 2 * F/U repeat BEP/Mag and replete as needed 3. ST depressions, lateral leads * Cardio consult with Dr. Mcadams placed and appreciated, f/u rec's * Troponin negative x 3, EKG showed mild ST depressions, patient likely has stable CAD with icnreased myocardial demand * Echocardiogram ordered, f/u results * If patient has chest pain, consider metoprolol 25 mg PO BID * Continue ASA daily 4. Elevated BUN * BUN 56 with normal cre to 1.0 on admission, has since trended downt o 28/0.7 * Repeat stool guiac +, concern for GI bleed now along with dropping H&H (may be dilutional) * Follow up repeat CBC later today at 4 pm to monitor for further drop 5. Parkinson's dementia and severe bipolar disorder with psychosis * Patient showing signs of severe anxiety on admission, no SI/HI * Continue all home medications DNR/DNI Clear Liquid diet Mild Pain Pathway DVTP: Mech & Pharm Problem List: 1. Anxiety disorder 2. Essential hypertension 3. Parkinson's disease 4. Restless leg syndrome 5. Diarrhea 6. Lactic acidosis 7. Bandemia 8. Hypokalemia Pain Ratin Pain Location: Generalized abdominal discomfort Pain Goal: Pain 4 or less Pain Plan: Per pain pathway. Tomorrow's Labs & Rationales: CBC (concern for active GI bleeding), BEP (hypokalemia and electrolyte abnormality)
[2016-04-10 07:58] LABS: ABSOLUTE BASOPHIL COUNT 0 /CUMM (0.0-0.2); ABSOLUTE EOSINOPHIL COUNT 0.1 /CUMM (0.0-0.7); ABSOLUTE GRANULOCYTE CT 3.5 /CUMM (1.4-6.5); MEAN CORPUSCULAR HGB 30.8 PG (27.0-31.0)
[2016-04-10 08:23] LABS: ABSOLUTE LYMPH COUNT 0.5 /CUMM (1.2-3.4); ABSOLUTE MONOCYTE COUNT 0.5 /CUMM (0.10-0.60); BASOPHIL % 0.3 % (0.0-2.0); EOSINOPHIL % 2.7 % (0-5); GRANULOCYTE % 74.1 % (42.2-75.2); MEAN CORPUSCULAR HGB CONC 33.1 G/DL (33.0-37.0); MEAN CORPUSCULAR VOLUME 92.9 FL (81.0-99.0); MEAN PLATELET VOLUME 8.4 FL (7.4-10.4); PLATELET COUNT 174 /CUMM (130-400); RBC DISTRIBUTION WIDTH 15.1 % (11.5-14.5); WHITE BLOOD CELL COUNT 4.7 /CUMM (4.8-10.8)
[2016-04-10 08:32] LABS: HEMATOCRIT 28.1 % (37-47); RED BLOOD CELL CT 3.02 /CUMM (4.20-5.40)
[2016-04-10 09:02] VITALS: BP 110/54
[2016-04-10 16:43] VITALS: BP 110/60
[2016-04-10 17:33] LABS: ABSOLUTE BASOPHIL COUNT 0 /CUMM (0.0-0.2); ABSOLUTE EOSINOPHIL COUNT 0.2 /CUMM (0.0-0.7); ABSOLUTE LYMPH COUNT 0.7 /CUMM (1.2-3.4); ABSOLUTE MONOCYTE COUNT 0.6 /CUMM (0.10-0.60); BASOPHIL % 0.4 % (0.0-2.0); MEAN CORPUSCULAR HGB 30.6 PG (27.0-31.0)
[2016-04-10 17:36] LABS: EOSINOPHIL % 5.2 % (0-5); GRANULOCYTE % 65.7 % (42.2-75.2); HEMATOCRIT 29.2 % (37-47); MEAN CORPUSCULAR HGB CONC 32.8 G/DL (33.0-37.0); MEAN CORPUSCULAR VOLUME 93.4 FL (81.0-99.0); MEAN PLATELET VOLUME 7.6 FL (7.4-10.4); PLATELET COUNT 181 /CUMM (130-400); RBC DISTRIBUTION WIDTH 15.1 % (11.5-14.5); RED BLOOD CELL CT 3.13 /CUMM (4.20-5.40); WHITE BLOOD CELL COUNT 4.6 /CUMM (4.8-10.8)
--- NOTE | 2016-04-10 18:42 | PN- Cardiology ---
Subjective Subjective: * Patient is comfortable with minimal diarrhea. No chest discomfort, shortness of breath, lightheadedness or palpitations. * potassium level is improved Objective Vital Signs and I&Os Vital Signs Date Time Temp Pulse Resp B/P Pulse O2 O2 Flow FiO2 Ox Delivery Rate 04/10 1643 97.9 94 18 110/60 94 Room Air 04/10 1600 96 Room Air 04/10 1404 Room Air Room Air 04/10 0902 98.1 96 18 110/54 96 Room Air 04/09 2349 98.1 94 16 124/60 95 Room Air Intake & Output 04/10 1600 04/10 0800 04/10 0000 04/09 1600 04/09 0800 04/09 0000 Intake Total 1000 700 700 Output Total 400 750 300 Balance 1000 300 -50 -300 Intake, IV 600 600 250 Intake, Oral 400 100 450 Number 1 1 Bowel Movements Output, Urine 400 750 300 Physical Exam: General: WD/ WN female in NAD; awake and responsive with decreased memory Neck: no JVD, no carotid bruit Heart: RRR with 2/6 systolic murmur Lungs: clear bilaterally Abdomen: soft, NT, +ve bowel sounds Extremties: no edema Assessment/Plan Assessment/Plan * This patient is doing better with resolution of her hypokalemia, vomiting and minimal diarrhea. * No current chest discomfort. Patients heart rate has come down with hydration. Begin metoprolol 12.5mg BID. Continue telemetry? Yes
[2016-04-11 00:18] VITALS: BP 110/60
[2016-04-11 06:00] VITALS: BP 130/70
--- NOTE | 2016-04-11 07:13 | PN- Housestaff ---
See Addendum Subjective Follow-up For: Viral gastroenteritis ST depressions Dehydration Hypokalemia and hypomagnesemia Tele-Events Since Last Visit: NSR HR 64-101. Subjective: Patient seen and examined at bedside this AM. She is sitting up brushing her teeth and reports she feels well. She did mention two transient episodes of abdominal cramping, one last night and on this morning, but she feels well now and has had no further episodes of diarrhea since yesterday. She is requesting advancement of her diet. Review of Systems Constitutional: Denies: chills, fever. EENTM: Denies: visual changes, hearing changes. Cardiovascular: Denies: chest pain, palpitations. Respiratory: Denies: cough, short of breath. Gastrointestinal: Denies: diarrhea (Improved), nausea, vomiting. Genitourinary: Denies: dysuria. Musculoskeletal: Denies: back pain. Skin: Denies: rash. Neurological/Psychological: Denies: confusion. Hematologic/Endocrine: Denies: bruising, bleeding. Objective Last 24 Hrs of Vital Signs/I&O Vital Signs Date Time Temp Pulse Resp B/P Pulse O2 O2 Flow FiO2 Ox Delivery Rate 04/11 0018 97.9 64 18 110/60 94 Room Air 04/10 2208 87 114/60 04/10 1643 97.9 94 18 110/60 94 Room Air 04/10 1600 96 Room Air 04/10 1404 Room Air Room Air 04/10 0902 98.1 96 18 110/54 96 Room Air Intake & Output 04/11 0800 04/11 0000 04/10 1600 Intake Total 525 1040 1000 Output Total 500 Balance 25 1040 1000 Intake, IV 525 600 600 Intake, Oral 440 400 Number 0 Bowel Movements Output, Urine 500 Physical Exam General Appearance: Alert, Oriented X3, Cooperative, No Acute Distress Skin: No Rashes, No Significant Lesion HEENT: Atraumatic, PERRLA, Mucous Membr. moist/pink Neck: Supple, No JVD Lymphatic: Cervical nl Cardiovascular: Regular Rate, Normal S1, Normal S2 Lungs: Normal Air Movement Abdomen: Normal Bowel Sounds, Soft, No Masses Neurological: Normal Speech, Strength at 5/5 X4 Ext, Normal Tone Extremities: No Clubbing, No Cyanosis, No Edema Vascular: Pulses Symmetrical Current Medications: Current Medications Sig/[place] Start time Last Medication Dose Route Stop Time Status Admin Aspirin 81 MG DAILY 04/09 1557 AC 04/10 PO 0947 Atorvastatin Calcium 20 MG QPM 04/09 2200 AC 04/10 PO 2208 Carbidopa/Levodopa 1 TAB TID 04/09 1600 AC 04/10 PO 2209 Donepezil HCl 10 MG QPM 04/09 2200 AC 04/10 PO 2208 Gabapentin 400 MG TID 04/09 2200 AC 04/10 PO 2208 Heparin Sodium 5,000 UNIT Q8 04/09 1619 AC 04/11 (Porcine) SC 0553 Lamotrigine 400 MG DAILY 04/09 1559 AC 04/10 PO 0949 Levetiracetam 250 MG DAILY 04/09 1559 AC 04/10 PO 0947 Loperamide HCl 2 MG Q6P PRN 04/10 1615 AC PO Lorazepam 0.5 MG DAILY 04/09 1559 AC 04/10 PO / 1558 0955 Memantine 5 MG BID 04/09 2200 AC 04/10 PO 2208 Metoprolol Tartrate 12.5 MG BID 04/10 1900 AC 04/10 PO 2208 Omeprazole 40 MG DAILY AC 04/09 1600 AC 04/11 PO 0553 Patient Medication 1 ED ONE ONE 04/10 1400 DC 04/10 Teaching ED 04/10 1401 1439 Potassium Chloride 40 MEQ BID 04/09 2199 DC 04/09 PO 2207 Quetiapine Fumarate 600 MG QPM 04/09 2200 AC 04/10 PO 2208 Quetiapine Fumarate 25 MG TIDPRN PRN 04/09 1600 AC PO Sodium Chloride 1,000 ML Q13H 04/09 1715 DC 04/11 IV 0025 Ziprasidone 80 MG DAILY 04/09 1600 AC 04/10 PO 0955 Last 24 Hrs of Lab/[place] Results Last 24 Hrs of Labs/Mics: Laboratory Tests 04/11/16 0615: Sodium Pending, Potassium Pending, Chloride Pending, Carbon Dioxide Pending, Anion Gap Pending, BUN Pending, Creatinine Pending, BUN/Creatinine Ratio Pending , Magnesium Pending, CBC w Diff Pending, WBC Pending, RBC Pending, Hgb Pending, Hct Pending, MCV Pending, MCH Pending, RDW Pending, Plt Count Pending, MPV Pending, PUBS MCHC Pending 02/28/17 1715: CBC w Diff NO MAN DIFF REQ, RBC 3.13 L, MCV 93.4, MCH 30.6, RDW 15.1 H, MPV 7.6, Gran % 65.7, Lymphocytes % 15.4 L, Monocytes % 13.3 H, Eosinophils % 5.2 H, Basophils % 0.4, Absolute Granulocytes 3.0, Absolute Lymphocytes 0.7 L, Absolute Monocytes 0.6, Absolute Eosinophils 0.2, Absolute Basophils 0, PUBS MCHC 32.8 L Microbiology 04/10 816 STOOL: Stool Culture - COLB Orders Radiology Findings: Abd/pelvis CT: IMPRESSION: Small and large bowel loops are diffusely fluid filled with no dilatation to suggest obstruction. No focal inflammatory process. Assessment/Plan Assessment: Ms. Moreno is an 81 year old female with PMH Parkinson's dementia, anxiety disorder, HTN, HLD, CAD, GERD and restless leg syndrome who presents from an assisted living facility with chief complaint of nausea, vomiting and diarrhea. The vomiting started on Saturday, was non-bloody and progressed throughout the day to include generalized abdominal pain, non-bloody diarrhea and fever. Of note, prior to transport to the emergency room, patient was noted to be eating her feces. In the ED: Vital signs showed T 101.4 (rectal), HR 108, RR 18, BP 99/52 and O2 saturation of 97% on RA. Labs showed WBC 7.7 with 34 bands, H&H 12.6/37.9, Plt 220, and BEP significant for hypokalemia to 2.8 and BUN 56. Lactic acid high to 2.3. Mag low to 1.5. INR elevated to 1.24. Abdominal/pelvis CT was done and showed small and large bowel loops diffusely fluid filled with no obstruction and no focal inflammatory process. Stool guiac done in the ED was negative. Patient is admitted to the telemetry floor and the following is the management: 1. Likely viral gastroenteritis with possible sepsis * Patient febrile, had 34 bands, elevated lactic acid to 2.3 (hypokalemic metabolic acidosis) and nausea, vomiting, diarrhea on admission * Diarrhea improving with no episodes since yesterday * Blood culture x 2 NGTD, stool culture shows mixed price after 1 day, CDiff negative, Shiga toxin negative * F/U stool fat lab results * Abdominal CT ruled out inflammatory process/SBO * Advancing to full liquid diet at lunch, continue to advance as tolerated * Continue immodium * IV fluids stopped as patient no longer experiencing diarrhea and tolerated oral liquids well * Hold Linzess for now in setting of diarrhea, discontinue at discharge * Hold off antibiotics pending culture results * PT eval suggests STR vs home PT, will f/u repeat evaluation tomorrow 2. Hypokalemia and hypomagnesemia * K of 2.8 and Mag of 1.5 on admission, s/p repletion * Repeat Mag and K today WNL 3. ST depressions, lateral leads * Cardio consult with Dr. Mcadams placed and appreciated, f/u rec's * Troponin negative x 3, EKG showed mild ST depressions, patient likely has stable CAD with increased myocardial demand * Echocardiogram ordered, f/u results * Metoprolol 12.5 mg PO BID started, patient tolerating well * Continue ASA daily 4. Elevated BUN * BUN 56 with normal cre to 1.0 on admission, has since trended down to normal at 14/0.8 * Likely 2/2 dehydration 5. Parkinson's dementia and severe bipolar disorder with psychosis * Patient showing signs of severe anxiety on admission, no SI/HI * Continue all home medications DNR/DNI Full liquid diet Mild Pain Pathway DVTP: Mech & Pharm Problem List: 1. Anxiety disorder 2. Essential hypertension 3. Parkinson's disease 4. Restless leg syndrome 5. Diarrhea 6. Lactic acidosis 7. Bandemia 8. Hypokalemia Pain Ratin Pain Location: n/a Pain Goal: Remain pain free Pain Plan: Mild pain pathway. Tomorrow's Labs & Rationales: BEP (monitor K), Mag (hypomagnesemia)
[2016-04-11 08:00] VITALS: BP 124/70
[2016-04-11 08:07] LABS: ABSOLUTE BASOPHIL COUNT 0 /CUMM (0.0-0.2); ABSOLUTE EOSINOPHIL COUNT 0.4 /CUMM (0.0-0.7); ABSOLUTE GRANULOCYTE CT 2.8 /CUMM (1.4-6.5); ABSOLUTE MONOCYTE COUNT 0.5 /CUMM (0.10-0.60); BASOPHIL % 0.5 % (0.0-2.0); EOSINOPHIL % 7.8 % (0-5); GRANULOCYTE % 58.3 % (42.2-75.2); HEMATOCRIT 27.1 % (37-47); MEAN CORPUSCULAR HGB 30.9 PG (27.0-31.0); MEAN CORPUSCULAR HGB CONC 33.3 G/DL (33.0-37.0); MEAN CORPUSCULAR VOLUME 92.8 FL (81.0-99.0); MEAN PLATELET VOLUME 8.1 FL (7.4-10.4); PLATELET COUNT 177 /CUMM (130-400); RBC DISTRIBUTION WIDTH 15.4 % (11.5-14.5); RED BLOOD CELL CT 2.92 /CUMM (4.20-5.40); WHITE BLOOD CELL COUNT 4.7 /CUMM (4.8-10.8)
[2016-04-11] MEDS ORDERED: METOPROLOL TART25 M1 PO (08:13)
--- NOTE | 2016-04-11 09:51 | PN- Cardiology ---
Subjective Subjective: * This patient continues to have some diarrhea. She reports minimal lightheadedness. * Normal potassium Objective Vital Signs and I&Os Vital Signs Date Time Temp Pulse Resp B/P Pulse O2 O2 Flow FiO2 Ox Delivery Rate 04/12 799 98.3 77 18 124/70 98 Room Air 04/11 0018 97.9 64 18 110/60 94 Room Air 04/10 2208 87 114/60 04/10 1643 97.9 94 18 110/60 94 Room Air 04/10 1600 96 Room Air 04/10 1404 Room Air Room Air Intake & Output 04/11 1600 04/11 0804/11 0000 04/10 1600 04/10 0800 04/10 0000 Intake Total 525 1040 1000 700 700 Output Total 500 400 750 Balance 25 1040 1000 300 -50 Intake, IV 525 600 600 600 250 Intake, Oral 440 400 100 450 Number 0 1 1 Bowel Movements Output, Urine 500 400 750 Physical Exam: General: WD/ WN female in NAD; awake and responsive with decreased memory Heart: RRR with 2/6 systolic murmur Lungs: clear bilaterally Abdomen: soft, NT, +ve bowel sounds Extremties: no edema Assessment/Plan Assessment/Plan * This patient is doing better with resolution of her hypokalemia and vomiting. She continues to have diarrhea. * No current chest discomfort. Patients heart rate has come down with hydration. Begin metoprolol 12.5mg BID. Continue telemetry? Yes
[2016-04-11 15:18] VITALS: BP 128/74
--- NOTE | 2016-04-11 16:07 | Patient Discharge Instructions ---
Discharge Instructions General Discharge Information You were seen/treated for: Viral gastroenteritis Diarrhea Electrolyte abnormalities Weakness Special Instructions: Please follow up with Dr. Griffin within 7 days of discharge. Please follow up with Dr. Mcadams within 1 week of discharge for continued cardiac care. Please take all medications as directed. PLEASE STOP YOUR LINZESS. Please have follow up electrolyte panel (with magnesium) drawn in 7 days and send results to your PCP. Please return to the hospital if your symptoms not improve/worsen. Diet Recommended Diet: Heart Healthy Activity Activity Self Limited: Yes Acute Coronary Syndrome Inclusion Criteria At DC or during hospital stay patient has or had the following: ACS DIAGNOSIS No Discharge Core Measures Meds if any: Prescribed or Continued at Discharge Meds if any: NOT Prescribed or Continued at Discharge Congestive Heart Failure Inclusion Criteria At DC or during hospital stay patient has or had the following: CHF DIAGNOSIS No Discharge Core Measures Meds if any: Prescribed or Continued at Discharge Meds if any: NOT Prescribed or Continued at Discharge Cerebrovascular accident Inclusion Criteria At DC or during hospital stay patient has or had the following: CVA/TIA Diagnosis No Discharge Core Measures Meds if any: Prescribed or Continued at Discharge Meds if any: NOT Prescribed or Continued at Discharge Venous thromboembolism Inclusion Criteria VTE Diagnosis No VTE Type NONE VTE Confirmed by (Test) NONE Discharge Core Measures - Per Current guidelines, there needs to be overlap - treatment for the first 5 days of Warfarin therapy. - If discharged on Warfarin prior to 5 days of - overlap therapy, the patient will need to be - assessed for post discharge needs including - *Post discharge parental anticoagulation - *Warfarin and/or parental anticoagulation education - *Follow up date to check INR post discharge At least 5 days overlap therapy as Inpatient No Meds if any: Prescribed or Continued at Discharge Note: Overlap Therapy is Warfarin and Anticoagulant Meds if any: NOT Prescribed or Continued at Discharge
--- NOTE | 2016-04-11 18:39 | ECHOCARDIOGRAM REPORT ---
TANMAY BAUER Age: 81 : 1935 Gender: F Exam Date: 04/10/2016 19:37 Exam Location: [address] Ht (in): 62 Wt (lb): 132 BSA: 1.63 BP: 110 / 54 Ordering Physician: AMNA LUNA, Referring Physician: Corey Mcadams MD, PhD Technologist: Claudetet Moreno [facility] Room Number: 175 Indications: LV FUNCTION AFTER ACS Rhythm: Sinus Technical Quality: Fair FINDINGS Left Ventricle Normal size left ventricle. Mild concentric left ventricular hypertrophy. No obvious regional wall motion abnormalities. Normal left ventricular ejection fraction visually estimated at >65%. "pseudonormal" filling pattern of the left ventricle for age (stage 2 diastolic dysfunction). Right Ventricle Normal right ventricular size and function. Right Atrium Normal right atrial size. Left Atrium Normal left atrial size. Mitral Valve Mildly calcified mitral valve annulus. Mitral valve mildly thickened. No mitral regurgitation. Aortic Valve Probable trileaflet aortic valve. Diffuse mild thickening of the aortic valve cusps with mildly reduced excursion. No hemodynamically significant aortic stenosis. Trace aortic regurgitation. Tricuspid Valve Structurally normal tricuspid valve. Trace tricuspid regurgitation. No evidence of pulmonary hypertension. Right ventricular systolic pressure estimated to be within the normal range at 12 mmHg. Pulmonic Valve Pulmonic valve not well visualized. No pulmonic regurgitation. Pericardium No pericardial effusion. Great Vessels Upper normal limits for size aortic root. Mildly dilated ascending aorta. CONCLUSIONS Normal size left ventricle. Mild concentric left ventricular hypertrophy. Normal left ventricular ejection fraction visually estimated at > 65%. "pseudonormal" filling pattern of the left ventricle for age (stage 2 diastolic dysfunction). Normal right ventricular size and function. Normal atrial size. Trace aortic regurgitation. Trace tricuspid regurgitation. No evidence of pulmonary hypertension. Upper normal limits for size aortic root. Mildly dilated ascending aorta. Zaid Marin M.D. (Electronically Signed) Final Date: 11 April 2016 18:38 MEASUREMENTS (Male / Female) Normal Values 2D ECHO LV Diastolic Diameter PLAX 4.3 cm 4.2 - 5.9 / 3.9 - 5.3 cm LV Systolic Diameter PLAX 2.5 cm 2.1 - 4.0 cm LV Fractional Shortening PLAX 41.9 % 25 - 46 % LV Ejection Fraction 2D Teich 73.1 % IVS Diastolic Thickness 1.1 cm LVPW Diastolic Thickness 1.2 cm LV Relative Wall Thickness 0.5 RV Internal Dim ED PLAX 3.0 cm 1.9 - 3.8 cm LVOT Diameter 2.2 cm Aortic Root Diameter 3.7 cm LA Systolic Diameter LX 3.7 cm 3.0 - 4.0 / 2.7 - 3.8 cm LA Volume 42.0 cm 18 - 58 / 22 - 52 cm Ascending Aorta Diameter 3.7 cm DOPPLER AV Peak Velocity 165.0 cm/s AV Peak Gradient 10.9 mmHg AV Mean Velocity 116.0 cm/s AV Mean Gradient 6.0 mmHg AV Velocity Time Integral 39.3 cm LVOT Peak Velocity 90.2 cm/s LVOT Peak Gradient 3.3 mmHg LVOT Mean Velocity 57.9 cm/s LVOT Mean Gradient 2.0 mmHg LVOT Velocity Time Integral 20.1 cm LVOT Stroke Volume 76.4 cm AV Area Cont Eq vti 1.9 cm AV Area Cont Eq pk 2.1 cm MV Peak Velocity 86.8 cm/s MV Peak Gradient 3.0 mmHg MV Mean Velocity 46.9 cm/s MV Mean Gradient 1.0 mmHg Mitral E Point Velocity 91.8 cm/s Mitral A Point Velocity 78.0 cm/s Mitral E to A Ratio 1.2 MV PHT Velocity 90.7 cm/s MV Deceleration [place] 371.0 cm/s MV Pressure Half Time 73.3 ms MV Area PHT 3.0 cm MV Deceleration Time 208.0 ms TR Peak Velocity 132.0 cm/s TR Peak Gradient 7.0 mmHg Right Atrial Pressure 5.0 mmHg Pulmonary Artery Systolic Pressu 12.0 mmHg Right Ventricular Systolic Press 12.0 mmHg PV Peak Velocity 76.0 cm/s PV Peak Gradient 2.3 mmHg PV Mean Velocity 57.5 cm/s PV Mean Gradient 1.0 mmHg PV Velocity Time Integral 13.4 cm LV E' Lateral Velocity 9.9 cm/s Mitral E to LV E' Lateral Ratio 9.3 LV E' Septal Velocity 7.8 cm/s Mitral E to LV E' Septal Ratio 11.8
--- NOTE | 2016-04-12 06:48 | PN- Housestaff ---
See Addendum Subjective Follow-up For: Viral gastroenteritis with diarrhea, resolving Dehydration Hypokalemia/hypomagnesemia ST depression Tele-Events Since Last Visit: NSR HR 72-77 bpm, no overnight events. Subjective: Patient seen and examined at bedside this AM. She is resting comfortably in bed and offers no complaints. She denies abdominal cramping and has not had a loose or solid stool since yesterday. She has tolerated her regular diet without any issue. Review of Systems Constitutional: Denies: chills, fever. EENTM: Denies: visual changes, nasal congestion. Cardiovascular: Denies: chest pain, palpitations, peripheral edema. Respiratory: Denies: cough, short of breath. Gastrointestinal: Denies: abdominal pain, bloating, constipation, diarrhea, nausea, bloody stool, vomiting. Genitourinary: Denies: dysuria, hematuria. Musculoskeletal: Denies: back pain. Skin: Denies: rash. Neurological/Psychological: Denies: confusion. Objective Last 24 Hrs of Vital Signs/I&O Vital Signs Date Time Temp Pulse Resp B/P Pulse O2 O2 Flow FiO2 Ox Delivery Rate 04/11 2199 78 120/60 04/11 1518 98.3 72 18 128/74 96 Room Air 04/11 1017 128/64 04/11 0800 98.3 77 18 124/70 98 Room Air Intake & Output 04/12 0800 04/12 0000 04/11 1600 Intake Total 600 Output Total 500 Balance 100 Intake, IV 200 Intake, Oral 400 Number 1 Bowel Movements Output, Urine 500 Patient 165 lb Weight Physical Exam General Appearance: Alert, Oriented X3, Cooperative, No Acute Distress Skin: No Rashes, No Significant Lesion HEENT: Atraumatic, PERRLA, EOMI, Mucous Membr. moist/pink Neck: Supple, No LAD Lymphatic: Cervical nl Cardiovascular: Regular Rate, Normal S1, Normal S2 Lungs: Clear to Auscultation, Normal Air Movement Abdomen: Normal Bowel Sounds, Soft, No Tenderness Neurological: Normal Speech, Normal Tone Extremities: No Clubbing, No Cyanosis, No Edema Current Medications: Current Medications Sig/[place] Start time Last Medication Dose Route Stop Time Status Admin Aspirin 81 MG DAILY 04/09 1557 AC 04/11 PO 1018 Atorvastatin Calcium 20 MG QPM 04/09 2199 AC 04/11 PO 220 Carbidopa/Levodopa 1 TAB TID 04/09 1600 AC 04/11 PO 2219 Donepezil HCl 10 MG QPM 04/09 2200 AC 04/11 PO 2219 Gabapentin 400 MG TID 04/09 2200 AC 04/11 PO 2219 Heparin Sodium 5,000 UNIT Q8 04/09 1619 AC 04/12 (Porcine) SC 0600 Lamotrigine 400 MG DAILY 04/09 1559 AC 04/11 PO 1018 Levetiracetam 250 MG DAILY 04/09 1559 AC 04/11 PO 1018 Loperamide HCl 2 MG .STK-MED ONE 04/11 1042 DC PO 04/11 1043 Loperamide HCl 2 MG Q6P PRN 04/10 1615 AC 04/11 PO 1045 Lorazepam 0.5 MG DAILY 04/09 1559 AC 04/11 PO 04/16 1558 1017 Memantine 5 MG BID 04/09 2200 AC 04/11 PO 2219 Metoprolol Tartrate 12.5 MG BID 04/10 1900 AC 04/11 PO 2200 Omeprazole 40 MG DAILY AC 04/09 1600 AC 04/12 PO 0637 Quetiapine Fumarate 600 MG QPM 04/09 2200 AC 04/11 PO 2221 Quetiapine Fumarate 25 MG TIDPRN PRN 04/09 1600 AC PO Sodium Chloride 1,000 ML Q13H 04/09 1715 DC 04/11 IV 0025 Ziprasidone 80 MG DAILY 04/09 1600 AC 04/11 PO 1019 Last 24 Hrs of Lab/[place] Results Last 24 Hrs of Labs/Mics: Laboratory Tests 04/12/16 0620: Sodium Pending, Potassium Pending, Chloride Pending, Carbon Dioxide Pending, Anion Gap Pending, BUN Pending, Creatinine Pending, BUN/Creatinine Ratio Pending , Magnesium Pending 04/11/16 0845: Stool Lactoferrin Pending 04/11/16 0845: Ref Lab Test Result Pending, Stool Fat, Qual Pending Microbiology 04/11 844 STOOL: Stool Culture - RECD Orders ECHO Findings: CONCLUSIONS Normal size left ventricle. Mild concentric left ventricular hypertrophy. Normal left ventricular ejection fraction visually estimated at > 65%. "pseudonormal" filling pattern of the left ventricle for age (stage 2 diastolic dysfunction). Normal right ventricular size and function. Normal atrial size. Trace aortic regurgitation. Trace tricuspid regurgitation. No evidence of pulmonary hypertension. Upper normal limits for size aortic root. Mildly dilated ascending aorta. Assessment/Plan Assessment: Ms. Moreno is an 81 year old female with PMH Parkinson's dementia, anxiety disorder, HTN, HLD, CAD, GERD and restless leg syndrome who presents from an assisted living facility with chief complaint of nausea, vomiting and diarrhea. The vomiting started on Saturday, was non-bloody and progressed throughout the day to include generalized abdominal pain, non-bloody diarrhea and fever. Of note, prior to transport to the emergency room, patient was noted to be eating her feces. In the ED: Vital signs showed T 101.4 (rectal), HR 108, RR 18, BP 99/52 and O2 saturation of 97% on RA. Labs showed WBC 7.7 with 34 bands, H&H 12.6/37.9, Plt 220, and BEP significant for hypokalemia to 2.8 and BUN 56. Lactic acid high to 2.3. Mag low to 1.5. INR elevated to 1.24. Abdominal/pelvis CT was done and showed small and large bowel loops diffusely fluid filled with no obstruction and no focal inflammatory process. Stool guiac done in the ED was negative. Patient is admitted to the telemetry floor and the following is the management: 1. Likely viral gastroenteritis with possible sepsis * Patient febrile, had 34 bands, elevated lactic acid to 2.3 (hypokalemic metabolic acidosis) and nausea, vomiting, diarrhea on admission * Diarrhea improving with no episodes since yesterday * Blood culture x 2 NGTD, stool culture (final) shows no enteric pathogens, CDiff negative, Shiga toxin negative:: no need for abx * F/U stool fat lab results, pending * Abdominal CT ruled out inflammatory process/SBO * Patient advanced to regular diet, tolerated well * Continue immodium while inpatient * Hold Linzess for now in setting of diarrhea, discontinue at discharge * PT reevaluated patient today and recommended STR as she is unsteady on ambulation and requires assistance to maneuver obstacles, bed search under way 2. Hypokalemia and hypomagnesemia * K of 2.8 and Mag of 1.5 on admission, s/p repletion * Repeat Mag and K today WNL 3. ST depressions, lateral leads * Cardio consult with Dr. Pema placed and appreciated, f/u rec's * Troponin negative x 3, EKG showed mild ST depressions, patient likely has stable CAD with increased myocardial demand * Echocardiogram ordered, showed normal EF>65% and stage 2 diastolic dysfunction * Metoprolol 12.5 mg PO BID continued, continue after discharge * Continue ASA daily 4. Elevated BUN * BUN 56 with normal cre to 1.0 on admission, has since trended down to normal at 8/0.7 * Likely 2/2 dehydration 5. Parkinson's dementia and severe bipolar disorder with psychosis * Patient showing signs of severe anxiety on admission, no SI/HI * Continue all home medications DNR/DNI Full liquid diet Mild Pain Pathway DVTP: Mech & Pharm Problem List: 1. Anxiety disorder 2. Essential hypertension 3. Parkinson's disease 4. Restless leg syndrome 5. Diarrhea 6. Lactic acidosis 7. Bandemia 8. Hypokalemia Pain Ratin Pain Location: n/a Pain Goal: Remain pain free Pain Plan: Mild pain pathway Tomorrow's Labs & Rationales: None.
[2016-04-12 07:44] VITALS: BP 122/60
--- NOTE | 2016-04-12 09:03 | Discharge Summary ---
Visit Information Visit Dates Admission Date: 04/09/16 Discharge Date: 04/12/16 Hospital Course Course Attending Physician: TUNDE FALLON M.D Primary Care Physician: NATI SANTORO MD Consulting Request: 1 Consulting Specialty: Cardiology Hospital Course: This is an 81-year-old lady with past medical history significant for Parkinson' s, bipolar disease with psychosis, hyperlipidemia, hypertension, GERD, chronic constipation, who presents to the hospital with nausea/vomiting/diarrhea for 3 days. Vital signs on admission: Maximum temperature 11.4, pulse rate 108, respiratory rate 18, blood pressure 99/52, oxygen saturation 100% on 2 L nasal cannula oxygen Pertinent physical exam at the time of admission: NAD, AAO 3, HEENT: Dry mucous membrane, head NCAT, PERRLA, EOMI, neck: Supple, no JVD, no carotid bruit. Cardiovascular: RRR, no murmurs. Lungs: CTABL. Abdomen: Normal bowel sounds, soft, tenderness on palpation in epigastric and right lower quadrant region. No rebound, no guarding. Extremities, no edema, normal and symmetrical pulses. Neurology: CN 3-12 WNL, normal strength and reflexes. Labs showed WBC 7.7 with 34 bands, H&H 12.6/37.9, Plt 220, and BEP significant for hypokalemia to 2.8 and BUN 56. Lactic acid high to 2.3. Mag low to 1.5. INR elevated to 1.24. Abdominal/pelvis CT was done and showed small and large bowel loops diffusely fluid filled with no obstruction and no focal inflammatory process. Stool guiac done in the ED was negative. Patient was admitted to the telemetry floor and the following were addressed during the course of her hospital stay: #Nausea vomiting diarrhea: Acute gastroenteritis lilely viral. Her medication linzess may have also played a significant role. According to the patient she has stopped taking this medication a while ago as stated by her primary care provider, however she reported that the assisted living facility has been administering this medication to her simply because it was listed on her medication list. Diarrhea improving with no episodes since yesterday. Blood culture x 2 NGTD, stool culture shows mixed price after 1 day, CDiff negative, Shiga toxin negative. Stool qualitative fat was normal. Abdominal CT ruled out inflammatory process/SBO. Patient's diet was advanced as tolerated. Received few doses of Immudiom as inpatient. Home medication of Linzess was held in setting of diarrhea, to be discontinued at discharge. #Hypokalemia and hypomagnesemia: The patient had K of 2.8 and Mag of 1.5 on admission, s/p repletion. Repeat Mag and K today WNL #ST depressions, lateral leads: Patient was asymptomatic on admission w/o chest pain. Cardiology was consulted. Troponin negative x 3, EKG showed mild ST depressions, patient likely has stable CAD with increased myocardial demand. Echocardiogram ordered, showed normal EF> 65% and stage 2 diastolic dysfunction. The patient was started on Metoprolol 12.5 mg PO BID per cardiology recommendations. She was maintained on her home medication of ASA 81 mg daily. #Elevated BUN: The patient had BUN of 56 with normal Cr to 1.0 on admission, has since trended down to normal at 8/0.7. Likely 2/2 dehydration #Parkinson's dementia and severe bipolar disorder with psychosis Patient showing signs of severe anxiety on admission, no SI/HI. We maintained her on her home medications. Allergies: Coded Allergies: adhesive tape (UNKNOWN 04/09/16) codeine (UNKNOWN 04/09/16) hydrocortisone (UNKNOWN 04/09/16) prednisone (UNKNOWN 04/09/16) Significant Procedures: None Pertinent Lab Results: Laboratory Tests 04/12 0620 Chemistry Sodium (137 - 145 mmol/L) 138 Potassium (3.5 - 5.1 mmol/L) 3.9 Chloride (98 - 107 mmol/L) 107 Carbon Dioxide (22 - 30 mmol/L) 27 Anion Gap (5 - 16) 5 BUN (7 - 17 mg/dL) 8 Creatinine (0.5 - 1.0 mg/dL) 0.7 Estimated GFR (>60 ml/min) > 60 BUN/Creatinine Ratio (7 - 25 %) 11.4 Magnesium (1.6 - 2.3 mg/dL) 1.8 Disposition Summary Disposition Principal Diagnosis: Acute gastroenteritis Additional Diagnosis: Hypokalemia Hypomagnesemia Discharge Disposition: SNF Discharge Instructions General Discharge Information Code Status: Do Not Resucitate/Intubat Patient's Diet: Cardiac Patient's Activity: As tolerated Follow-Up Instructions/Appts: Please follow up with Dr. Santoro within 7 days of discharge. Please follow up with Dr. Wood within 1 week of discharge for continued cardiac care and further ischemic work-up. Please take all medications as directed. PLEASE STOP YOUR LINZESS. Please have follow up electrolyte panel (with magnesium) drawn in 7 days and send results to your PCP. Please return to the hospital if your symptoms do not improve/worsen. Medications at Discharge Discharge Medications: Stop taking the following medications: Linaclotide (Linzess) 145 MCG CAPSULE ORAL DAILY Continue taking these medications: Donepezil HCl (Aricept) 10 MG TABLET 1 Tablet ORAL Every night Comments: Last Taken:04/11/16 Time:2200 Memantine HCl (Namenda) 5 MG TABLET 1 Tablet ORAL TWICE DAILY Comments: Last Taken:04/12/16 Time:1000 Gabapentin (Neurontin) 400 MG CAPSULE 1 Capsule ORAL THREE TIMES DAILY Comments: Last Taken:04/13/15 Time:1000 Carbidopa/Levodopa (Sinemet Cr 50-200 Tablet) 50 MG-200 MG TABLET.ER 1 Tablet ORAL THREE TIMES DAILY Comments: Last Taken:04/12/16 Time:1000 Lorazepam (Ativan) 0.5 MG TABLET 1 Tablet ORAL DAILY Comments: Last Taken:04/12/16 Time:1000 Ziprasidone HCl (Geodon) 80 MG CAPSULE 1 Capsule ORAL DAILY Comments: Last Taken:04/12/16 Time:1000 Levetiracetam (Keppra) 250 MG TABLET 1 Tablet ORAL DAILY Comments: Last Taken:04/12/16 Time:1000 Aspirin (Aspirin*) 81 MG TAB.CHEW 1 Tablet ORAL DAILY Comments: Last Taken:04/12/16 Time:1000 Atorvastatin Calcium (Lipitor) 20 MG TABLET 1 Tablet ORAL Every night Comments: Last Taken:04/11/16 Time:2200 Omeprazole (Omeprazole) 40 MG CAPSULE.DR 1 Capsule ORAL DAILY Comments: Last Taken:04/12/16 Time:0700 Quetiapine Fumarate (Seroquel) 400 MG TABLET 1 Tablet ORAL Every night Comments: Last Taken:04/11/16 Time:2200 Quetiapine Fumarate (Seroquel) 100 MG TABLET 2 Tablet ORAL Every night Quetiapine Fumarate (Seroquel) 25 MG TABLET 1 Tablet ORAL THREE TIMES A DAY NEEDED as needed for MOOD Lamotrigine (Lamictal) 200 MG TABLET 2 Tablet ORAL DAILY Comments: Last Taken:04/12/16 Time:1000 Start taking the following new medications: Metoprolol Tartrate (Metoprolol Tartrate) 25 MG TABLET 12.5 Milligram ORAL TWICE DAILY Qty = 30 No Refills Copies To: YVAN VELA,SAVITA WOOD MD PhD,LEONARDO De Santiago Attending MD Review Statement Documenting Attending: TUNDE FALLON M.D Other Findings: I reviewed the discharge summary.
[2016-04-12 10:47] VITALS: BP 124/60
== END 2016-04-12 13:25 | DRG 641 ==
LOC: ENRESERVTM → ENRESERVDT → ERH 09:20 → 1NO 13:56 → ERHI 13:56 → 1NO 17:02
PROVIDERS: Internal Medicine; Physician Assistant Medical; Student in an Organized Health Care Education/Training Program; ADMIT Internal Medicine
DX: E86.0 Dehydration (principal); A08.4 Viral intestinal infection, unspecified; G20 Parkinson's disease; I25.811 Atherosclerosis of native coronary artery of transplanted heart without angina pectoris; E83.42 Hypomagnesemia; F02.80 Dementia in other diseases classified elsewhere, unspecified severity, without behavioral disturbance, psychotic disturbance, mood disturbance, and anxiety; E87.6 Hypokalemia; F31.9 Bipolar disorder, unspecified; I10 Essential (primary) hypertension; Z87.891 Personal history of nicotine dependence; E78.5 Hyperlipidemia, unspecified; K21.9 Gastro-esophageal reflux disease without esophagitis; G25.81 Restless legs syndrome
CPT/HCPCS: 1NP; 82438; 84302; 84311; 36415; 74176; 81001; 82436; 83630; 87040; 87045; 87804; 87804-59; 93005; 93010; 93306; 96365; 96366; 96375; 97116-GO; 97162-GP; 97530-GO; J0131; J0696; J1644; J1953; J3490

== ENCOUNTER 2016-04-13 14:57 | Observation (INO) | payer OTHER, MEDICARE ==
[~2016-04-13] VITALS: Ht 157.5 cm; Wt 74.8 kg
[~2016-04-13 14:57] MED LIST: ARICEPT10 M1 PO; ASPIRIN81 M4 PO; ATIVAN0.5 M1 PO; GEODON80 MG PO; KEPPRA250 M1 PO; LAMICTAL200 M1 PO; LINZESS145 MC1 PO; LIPITOR20 M2 PO; METOPROLOL TART25 M1 PO; NAMENDA5 M1 PO; NEURONTIN400 M1 PO; OMEPRAZOLE40 M1 PO; SEROQUEL100 M1 PO; SEROQUEL25 M1 PO; SEROQUEL400 M1 PO; SINEMET CR 50-1 EACH PO
--- NOTE | 2016-04-13 15:00 | NUR ---
PT IS ALERT AND ORIENTED. REQUESTING TO USE THE BEDPAN. MOVES ALL EXTREMITIES WITH GOOD STRENGHT, ABLE TO TURN HERSELF ON THE STRETCHER. 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
--- NOTE | 2016-04-13 15:05 | ED GENERAL ADULT ---
History of Present Illness General Chief Complaint: General Adult Stated Complaint: WEAKNESS Source: patient, old records, EMS Exam Limitations: clinical condition Vital Signs & Intake/Output Vital Signs & Intake/Output Vital Signs Date Time Temp Pulse Resp B/P Pulse O2 O2 Flow FiO2 Ox Delivery Rate 04/16 2110 78 172/90 03/ 1504 98.1 73 20 154/80 95 Room Air 03/06 1310 Room Air / 1012 69 128/66 03/06 0652 98.8 69 20 128/66 97 03/06 0053 74 19 166/70 98 03/05 2342 97.6 78 18 132/88 96 Room Air / 2249 118/64 ED Intake and Output / 0000 05 1200 Intake Total 790 240 Output Total 600 875 Balance 190 -635 Intake, Oral 790 240 Number 0 Bowel Movements Output, Urine 600 875 Allergies Coded Allergies: adhesive tape (UNKNOWN 04/09/16) codeine (UNKNOWN 04/09/16) hydrocortisone (UNKNOWN 04/09/16) prednisone (UNKNOWN 04/09/16) Reconcile Medications Aspirin (Aspirin*) 81 MG TAB.CHEW 1 TAB PO DAILY HEART HEALTH (Reported) Atorvastatin Calcium (Lipitor) 20 MG TABLET 1 TAB PO QPM CHOLESTEROL ( Reported) Carbidopa/Levodopa (Sinemet Cr 50-200 Tablet) 50 MG-200 MG TABLET.ER 1 TAB PO TID PARKINSONS (Reported) Donepezil HCl (Aricept) 10 MG TABLET 1 TAB PO QPM DEMENTIA (Reported) Gabapentin (Neurontin) 400 MG CAPSULE 1 CAP PO TID BIPOLAR (Reported) Lamotrigine (Lamictal) 200 MG TABLET 2 TAB PO DAILY BIPOLAR (Reported) Levetiracetam (Keppra) 250 MG TABLET 1 TAB PO DAILY BIPOLAR (Reported) Lorazepam (Ativan) 0.5 MG TABLET 1 TAB PO DAILY ANXIETY (Reported) Memantine HCl (Namenda) 5 MG TABLET 1 TAB PO BID DEMENTIA (Reported) Metoprolol Tartrate 25 MG TABLET 12.5 MG PO BID Heart Omeprazole 40 MG CAPSULE.DR 1 CAP PO DAILY GI (Reported) Quetiapine Fumarate (Seroquel) 400 MG TABLET 1 TAB PO QPM SLEEP (Reported) Quetiapine Fumarate (Seroquel) 100 MG TABLET 2 TAB PO QPM SLEEP (Reported) Quetiapine Fumarate (Seroquel) 25 MG TABLET 1 TAB PO TIDPRN PRN MOOD ( Reported) Ziprasidone HCl (Geodon) 80 MG CAPSULE 1 CAP PO DAILY BIPOLAR (Reported) Triage Note: PT SEND IN FROM [facility] BY AMBULANCE FOR WEAKNESS. STAFF STATES SHE HAD PHYSICAL THERAPY THIS MORNING AND AT 12 PM NOTICED SHE WAS LEANING TO HER LEFT SIDE. NO NUERO DEFICITS NOTED. PT OFFERS NO COMPLAINTS. 0 [place] SCORE BY EMS Triage Nurses Notes Reviewed? yes Onset: Abrupt Duration: hour(s): (FEW) Timing: single episode today Injury Environment: [facility]CF Severity: moderate No Modifying Factors: none HPI: This is an 81-year-old female presents to the ER via EMS from [facility] for chief complaint of weakness. Patient was just discharged from [facility] after admission for dehydration there yesterday. According to the patient she ate breakfast this morning and an belated with PTT. At the end of the hallway she states she felt very weak and like her legs or any give way. Around noon she was feeling the same way and went to sleep for a few hours. Son noted her there to be listless and altered and they called EMS to bring her in. Currently patient is awake and alert and oriented 2. No chest pain shortness of breath. No headache or blurred vision. Son at bedside states that she looked little bit better. Son was worried that maybe there was a medication air and she received something that she could not. Patient's pupils noted to be 2-3 mm and reactive on the patient. Patient denies that she is on any opiate pain medications. Past History Travel History Traveled to [place] past 21 day No Medical History Any Pertinent Medical History? 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 Other Medical Hx: Hypertension, dyslipidemia, nonST elevation [place], bipolar disorder, anxiety, cholecystectomy, cholangitis secondary to ERCP and sphincterotomy in 1997, pancreatitis secondary to ERCP, bladder and rectal distention x 2, hysterectomy, repair of deviated septum, tonsillectomy, tarsal tunnel repair History of MRSA: No History of VRE: No History of CDIFF: No Influenza Vaccine: 11/12/15 Surgical History Surgical History: cholecystectomy, hysterectomy, bladder and rectal surgery repair of deviated septum tonsillectomy tarsal tunnel repair Psychosocial History Who do you live with Patient/Self Services at Home None What is your primary language Swazi Tobacco Use: Never used ETOH Use: denies use Illicit Drug Use: denies illicit drug use Family History Hx Contributory? No Review of Systems Review of Systems Constitutional: Reports: malaise, weakness. Denies: fever. EENTM: Reports: no symptoms. Respiratory: Denies: cough. Cardiovascular: Denies: chest pain. GI: Reports: nausea. Denies: abdominal pain, vomiting. Genitourinary: Denies: dysuria, frequency. Musculoskeletal: Reports: no symptoms. Skin: Reports: no symptoms. Neurological/Psychological: Reports: no symptoms. Hematologic/Endocrine: Denies: bruising, bleeding, polyuria, polydipsia. Immunologic/Allergic: Denies: splenectomy. All Other Systems: Reviewed and Negative Physical Exam Physical Exam General Appearance: well developed/nourished, lethargic, moderate distress Head: atraumatic, normal appearance Eyes: Bilateral: normal appearance, PERRL, EOMI. Ears, Nose, Throat: DRY MUCUS MEMBRANES Neck: normal inspection, supple, full range of motion Respiratory: normal breath sounds, chest non-tender, no respiratory distress Cardiovascular: regular rate/rhythm Peripheral Pulses: 2+ radial (R), 2+ radial (L) Gastrointestinal: normal bowel sounds, soft, non-tender Back: normal range of motion Extremities: normal inspection, normal range of motion, no edema Neurologic/Psych: no motor/sensory deficits, awake, alert Skin: pallor Core Measures ACS in differential dx? No CVA/TIA Diagnosis: No Severe Sepsis Present: No Septic Shock Present: No Progress Differential Diagnoses I considered the following diagnoses in my evaluation of the patient: [CVA, TIA, KAROLINE, DEHYDRATION, ELECTROLYTE DISTURBANCE, UTI, BACTEREMIA, SEPSIS, PNEUMONIA] Plan of Care: Orders Procedure Date/time Status Change service to 04/16 08 Active PT Evaluate & Treat 04/16 UNK Active Current Medications Sig/[place] Start time Last Medication Dose Stop Time Status Admin Acetaminophen 650 MG Q6P PRN 04/13 1405 AC (Tylenol) Acetaminophen 1,000 MG Q6P PRN 04/13 2245 AC (Ofirmev) Laboratory Tests 04/16/16 0658: Anion Gap 7, Estimated GFR > 60, BUN/Creatinine Ratio 18.6, CBC w Diff NO MAN DIFF REQ, RBC 3.36 L, MCV 92.8, MCH 30.5, RDW 14.7 H, MPV 7.3 L, Gran % 64.9, Lymphocytes % 21.9, Monocytes % 10.3 H, Eosinophils % 2.5, Basophils % 0.4, Absolute Granulocytes 6.0, Absolute Lymphocytes 2.0, Absolute Monocytes 1.0 H, Absolute Eosinophils 0.2, Absolute Basophils 0, PUBS MCHC 32.9 L Diagnostic Imaging: Viewed by Me: CT Scan. Discussed w/RAD: CT Scan. Initial ED EKG: NSR @ 81, LAD Comments: PATIENT: TANMAY BAUER PRESENT AGE: 81 PATIENT ACCOUNT NO: [id number] : 36 LOCATION: [facility] ORDERING PHYSICIAN: JOHNNY SIMEON MD SERVICE DATE: 04/13/16 EXAM TYPE: CAT - CT HEAD WO IV CONTRAST EXAMINATION: CT HEAD WITHOUT CONTRAST CLINICAL INFORMATION: Weakness, altered mental status COMPARISON: 08/04/2009 TECHNIQUE: Contiguous axial imaging was performed from the skull base to vertex without intravenous administration of contrast. DLP: 601 mGy-cm FINDINGS: There is no evidence of acute intracranial hemorrhage or territorial infarction. No abnormal mass effect or midline shift is seen. There is mild periventricular white matter hypoattenuation, consistent with chronic microvascular ischemic change. Patel to white matter differentiation is well preserved. No extra-axial fluid collections are identified. The ventricles are normal in size. There is no abnormal attenuation within the brain parenchyma. The osseous structures and soft tissues are normal. The mastoid air cells and visualized portions of the paranasal sinuses are well aerated. There is a 1.5 cm ovoid mass in the left parotid gland. Previous CT exams of the head did not include the location of this mass for comparison. IMPRESSION: 1. No acute intracranial pathology. 2. 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 Consider ultrasound with imaged guided biopsy. DICTATED BY: ROMULO CARDONA MD DATE/TIME DICTATED:04/13/161556 RN ADMISSIONS:VLADIMIR DATE/TIME TRANSCRIBED:04/13/16 / 1557 CONFIDENTIAL, DO NOT COPY WITHOUT APPROPRIATE AUTHORIZATION. <Electronically signed in Other Vendor System> SIGNED BY: ROMULO CARDONA MD 1614 Departure Departure Time of Disposition: 1824 Disposition: STILL A PATIENT Condition: Stable Clinical Impression Primary Impression: Weakness Secondary Impressions: Encephalopathy Referrals: NATI SANTORO MD (PCP/Family) Departure Forms: Customer Survey General Discharge Information Observation Note Spoke With: DANIS VALERO MD Physician Advisor Notified: CORBY VELA,LEONARDO Marquez Place Patient In: Non-ED OBS Care Area Rationale for Observation: My rational for observation is as follows [NEUROLOGY CONSULTATION, MEDICATION REEVALUATION, CONSULT WITH PCP DR SANTORO, DR BLACKWELL NEURO, DR [facility] ]. Critical Care Note Critical Care Note Critical Care Time: non-applicable
--- NOTE | 2016-04-13 15:08 | NUR ---
PT BEING EVALUATED BY DR. SIMEON AT THIS TIME. REPORT TO CODI QUINTERO
--- NOTE | 2016-04-13 15:29 | NUR ---
FAMILY WANTING TO TALK WITH ER CONCERNING PTS OWN DOCTORS AND ALL THE MEDICATIONS SHE IS ON
--- NOTE | 2016-04-13 16:10 | NUR ---
LABS DRAWN AND SENT(BLUE,SST,PINK,LAV,CASTLE)URINE TRIO ALSO SENT
--- NOTE | 2016-04-13 16:14 | CT SCAN REPORT ---
EXAMINATION: CT HEAD WITHOUT CONTRAST CLINICAL INFORMATION: Weakness, altered mental status COMPARISON: 08/04/2009 TECHNIQUE: Contiguous axial imaging was performed from the skull base to vertex without intravenous administration of contrast. DLP: 601 mGy-cm FINDINGS: There is no evidence of acute intracranial hemorrhage or territorial infarction. No abnormal mass effect or midline shift is seen. There is mild periventricular white matter hypoattenuation, consistent with chronic microvascular ischemic change. Patel to white matter differentiation is well preserved. No extra-axial fluid collections are identified. The ventricles are normal in size. There is no abnormal attenuation within the brain parenchyma. The osseous structures and soft tissues are normal. The mastoid air cells and visualized portions of the paranasal sinuses are well aerated. There is a 1.5 cm ovoid mass in the left parotid gland. Previous CT exams of the head did not include the location of this mass for comparison. IMPRESSION: 1. No acute intracranial pathology. 2. 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 Consider ultrasound with imaged guided biopsy.
[2016-04-13 16:18] LABS: ABSOLUTE BASOPHIL COUNT 0 /CUMM (0.0-0.2); ABSOLUTE EOSINOPHIL COUNT 0.2 /CUMM (0.0-0.7); ABSOLUTE GRANULOCYTE CT 5.8 /CUMM (1.4-6.5); ABSOLUTE LYMPH COUNT 1.1 /CUMM (1.2-3.4); ABSOLUTE MONOCYTE COUNT 0.8 /CUMM (0.10-0.60); BASOPHIL % 0.3 % (0.0-2.0); EOSINOPHIL % 2.9 % (0-5); HEMATOCRIT 29.8 % (37-47); MEAN CORPUSCULAR HGB 30.8 PG (27.0-31.0); MEAN CORPUSCULAR HGB CONC 33.3 G/DL (33.0-37.0); MEAN CORPUSCULAR VOLUME 92.5 FL (81.0-99.0); MEAN PLATELET VOLUME 7.1 FL (7.4-10.4); PLATELET COUNT 255 /CUMM (130-400); RED BLOOD CELL CT 3.22 /CUMM (4.20-5.40)
--- NOTE | 2016-04-13 17:15 | NUR ---
A&OX3, SKIN WARM AND DRY, RESPIRATIONS EVEN AND NON LABORED, STATES IM READY TO GO HOME
--- NOTE | 2016-04-13 19:46 | History & Physical ---
See Addendum ASHA ARCE MD 04/13/161945: General Information and HPI History of Present Illness: Ms. Moreno is a 81-year-old lady with a PMH significant for HTN, HLD, CAD s/p negative cardia cath, GERD, pancreatitis s/p ERCP, Parkinson's dementia, anxiety disorder, and restless leg syndrome, who returns from [facility] with cheif complaints of generalized weakness with transiet slurred speech and possible right-sided weakness. Patient was admitted at [facility] on 04/09 for viral gastroenteritis and discharged yesterday back to the assisted living facility. Per the nursing staff at the facility, this morning patient was noted to be lethargic with decreased response although she was remained awake, alerted and oriented once she woke up. After breakfast patient went back to sleep and when she woke up again around noon patient was noted to have generaized weakness and slurred speech, "leaning to the right side." Patient was subsequently BIBA to [facility] for stroke alert. Per the daughter, patient becomes particularly more tired and lethargic to the point that she falls asleep while talking shortly after taking her regular medications. Daughter believes that meds are causing the lethargy and psychomotor retardation. Patient has been on her psych meds for many years however and her lethargy has been relatively new and ongoing since a week ago. In ED CT head scan showed no acute intracranial pathology. She received 500cc of normal saline. Patient reports improvement in the generalized weakness without any focal motor weakness. Patient denies any dizziness, lightheadedness, headache, chest pain, shortness of breath, palpitations, abdominal pain, n/v, diarrhea. She endorses constipation and fatigue. Patient has a good appetite and tolerated all of her meals with no issues today. PCP - Dr Rice Cardio - Dr. Mcadams DNR/DNI. Allergies/Medications Allergies: Coded Allergies: adhesive tape (UNKNOWN 04/09/16) codeine (UNKNOWN 04/09/16) hydrocortisone (UNKNOWN 04/09/16) prednisone (UNKNOWN 04/09/16) Home Med list Aspirin (Aspirin*) 81 MG TAB.CHEW 1 TAB PO DAILY HEART HEALTH (Reported) Atorvastatin Calcium (Lipitor) 20 MG TABLET 1 TAB PO QPM CHOLESTEROL ( Reported) Carbidopa/Levodopa (Sinemet Cr 50-200 Tablet) 50 MG-200 MG TABLET.ER 1 TAB PO TID PARKINSONS (Reported) Donepezil HCl (Aricept) 10 MG TABLET 1 TAB PO QPM DEMENTIA (Reported) Gabapentin (Neurontin) 400 MG CAPSULE 1 CAP PO TID BIPOLAR (Reported) Lamotrigine (Lamictal) 200 MG TABLET 2 TAB PO DAILY BIPOLAR (Reported) Levetiracetam (Keppra) 250 MG TABLET 1 TAB PO DAILY BIPOLAR (Reported) Lorazepam (Ativan) 0.5 MG TABLET 1 TAB PO DAILY ANXIETY (Reported) Memantine HCl (Namenda) 5 MG TABLET 1 TAB PO BID DEMENTIA (Reported) Metoprolol Tartrate 25 MG TABLET 12.5 MG PO BID Heart Omeprazole 40 MG CAPSULE.DR 1 CAP PO DAILY GI (Reported) Quetiapine Fumarate (Seroquel) 400 MG TABLET 1 TAB PO QPM SLEEP (Reported) Quetiapine Fumarate (Seroquel) 100 MG TABLET 2 TAB PO QPM SLEEP (Reported) Quetiapine Fumarate (Seroquel) 25 MG TABLET 1 TAB PO TIDPRN PRN MOOD ( Reported) Ziprasidone HCl (Geodon) 80 MG CAPSULE 1 CAP PO DAILY BIPOLAR (Reported) Past History Travel History Traveled to [place] past 21 day No Medical History Neurological: Parkinson's disease, restless leg syndrome EENT: NONE Cardiovascular: CAD (s/p NSTEMI), hypertension, hyperlipidemia Respiratory: NONE Gastrointestinal: GERD, pancreatitis, cholangitis s/p ERCP with sphincterotomy Hepatic: NONE Renal: NONE Musculoskeletal: NONE Psychiatric: bipolar disease, anxiety depression Endocrine: NONE Blood Disorders: NONE Cancer(s): NONE 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 Other Medical Hx: Hypertension, dyslipidemia, nonST elevation [place], bipolar disorder, anxiety, cholecystectomy, cholangitis secondary to ERCP and sphincterotomy in 1997, pancreatitis secondary to ERCP, bladder and rectal distention x 2, hysterectomy, repair of deviated septum, tonsillectomy, tarsal tunnel repair History of MRSA: No History of VRE: No History of CDIFF: No Influenza Vaccine: 11/12/15 Surgical History Surgical History: cholecystectomy, hysterectomy, bladder and rectal surgery repair of deviated septum tonsillectomy tarsal tunnel repair Past Family/Social History Psychosocial History Where do you live? Assisted Living Who Do You Live With? self Services at Home: None Primary Language: Serbian ETOH Use: denies use Illicit Drug Use: denies illicit drug use Living Will? yes Review of Systems Review of Systems Constitutional: Reports: see HPI. Exam & Diagnostic Data Last 24 Hrs of Vital Signs/I&O Vital Signs Date Time Temp Pulse Resp B/P Pulse O2 O2 Flow FiO2 Ox Delivery Rate 04/13 2043 65 14 130/60 04/13 1805 61 14 133/61 Room Air 04/13 1459 99.1 88 20 116/78 96 Room Air Physical Exam General Appearance Alert, Oriented X3, Cooperative, No Acute Distress Skin No Rashes, No Breakdown, No Significant Lesion HEENT Atraumatic, PERRLA, EOMI, Mucous Membr. moist/pink Neck Supple, No JVD, +2 Carotid Pulse wo Bruit Cardiovascular Regular Rate, Normal S1, Normal S2, No Murmurs, Gallops, Rubs Lungs Clear to Auscultation, Normal Air Movement Abdomen Normal Bowel Sounds, Soft, No Tenderness, No Masses Neurological Normal Gait, Normal Speech, Normal Tone, Sensation Intact, Cranial Nerves 3-12 NL, Strength 4-5 in all extremities Extremities No Clubbing, No Cyanosis, No Edema, Normal Pulses, No Tenderness/ Swelling Vascular Normal Pulses, Pulses Symmetrical Assessment/Plan Assessment: Ms. Moreno is a 81-year-old lady with a PMH significant for HTN, HLD, CAD s/p negative cardia cath, GERD, pancreatitis s/p ERCP, Parkinson's dementia, anxiety disorder, and restless leg syndrome, who returns from [facility] with cheif complaints of generalized weakness with transiet slurred speech and possible right-sided weakness. She was admitted for an observation for evaluation of generalized weakness and possible stroke/TIA alert. # Generalized weakness Likely 2/2 decompensation from recent viral illness. 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 * Continue home meds Geodon, Sinemet, Neurotin, Namenda, Aricept * Hold Lamictal, Ativan and Keppra * Reduce Neurotin to 200mg TID * Consult psych # HTN, HLD Normotensive on admission. * Cont home meds metoprolol 12.5mg PO BID, Lipitor 20mg PO qPM, aspirin 81mg QD # DNR/DNI # Heart healthy diet # Mild Pain Pathway # DVTP: Mech & Pharm As Ranked By This Provider Problem List: 1. Anxiety disorder 2. Essential hypertension 3. Parkinson's disease 4. Restless leg syndrome 5. Unstable Angina 6. pneumobilia 7. Diarrhea 8. Lactic acidosis 9. Bandemia 10. Hypokalemia 11. Weakness Core Measures/Miscellaneous Acute Coronary Syndrome ACS Diagnosis: No Cerebrovascular Accident CVA/TIA Diagnosis: No Congestive Heart Failure CHF Diagnosis: No Venous Thromboembolism VTE Risk Factors: Age > 40 No Mech VTE prophylaxis d/t: No contraindications No VTE Pharm Prophylaxis d/t: No contraindications VTE Diagnosis: No VTE Type: NONE VTE Confirmed by (Test): NONE Severe Sepsis Severe Sepsis Present: Yes BC x2: Yes Lactic Acid x2: Yes IV ABX Broad Spectrum: Yes Septic Shock Septic Shock Present: No Miscellaneous Documentation Attending Case Discussed With: DANIS VALERO MD Primary Care Physician: NATI SANTORO MD Patient sees these Specialists See HPI Level of Patient Care: General Medicine RODOLFO TAFOYA MD 04/14/16 0046: Resident Review Statement Resident Statement: examined this patient, discussed with communications marketing intern, agreed with communications marketing intern Other Findings: 81-year-old lady with past medical history significant for Parkinson's, bipolar disease with psychosis, hyperlipidemia, hypertension, GERD, chronic constipation discharged yesterday after treated for viral gastroenteritis, hypokalemia. Returns to the hospital from her facility after having a an episode of lethargy, she was found to be confused and listless and thought to have a neurological deficit with gait imbalance. In the ER she has regained her coordination, is awake alert and in good spirts. Family and patient are concerned that she is taking too many mind altering medication that are contributing to her lethargic clinical state. The would like her medications reviewed with psychiatry and eliminating medications that may be causing her worsening mental status. We will admit her to [facility] and restart her medications namenda, neurontin, seroquel, sinemet at lower doses and have psychiatry evaluate. She has a 1.5cm left parotid mass that was not identified in the past, well will get [facility] to evaluate this further. DANIS VALERO 04/14/16 0224: Attending MD Review Statement Attending Statement Attending MD Statement: examined this patient, discuss w/resident/PA/OCCUPATIONAL THERAPIST ASSISTANT, agreed w/resident/PA/OCCUPATIONAL THERAPIST ASSISTANT, reviewed EMR data (avail), reviewed images, amended to note Attending Assessment/Plan: CC: LAVINIA PMH: HTN, HLD, CAD, GERD, Parkinson Disease, dementia, anxiety, restless leg Patient was discharged yesterday from [facility] treated for viral gastroenteritis, hypokalemia, hypomagnesemia, ST depression in lateral leads. Patient was symptomatically better at the time of discharge but came back again from assisted living with complaint of generalized weakness. Patient is poor historian, does not provide the details. She said she felt weak this morning and now feeling better. According to long-term, patient was more lethargic since morning, went back to sleep again after breakfast, when she woke up from that nap she was noted to have generalized weakness, and more leaning towards right side(?). She was hydrated in ER with 500 mL NS, later on feeling better. According to family, patient becomes particularly more tired and lethargic after taking her regular medications, ? meds are causing the lethargy and psychomotor retardation. Family request readjusting all the medications with the neurologist and psychiatrist help. Patient denies any dizziness, lightheadedness, headache, chest pain, shortness of breath, palpitations, abdominal pain, n/v, diarrhea. Patient keeps on asking her nighttime medications. Vitals: T max 99.1, pulse, R, blood pressure, O2 saturation acceptable range. On examination: No acute distress, anxious, forgetful, O 2, mucosa dry, neck supple, no JVD, no lymphadenopathy, CVS: S1-S2, RRR. RS: Clear to auscultate bilaterally. Abdomen: Soft, NT, ND, bowel sounds present. No focal neurological deficit, no dependent edema, peripheral pulses and perfusion normal. Labs: Hemoglobin 9.9, bicarbonate [address] head: No acute intracranial pathology, well-circumscribed 1.5 cm left parotid mass. A and P #1 lethargy and weakness: Patient does not provide much details. Probably secondary to polypharmacy. Patient has been on this medication since long time but probably deconditioning to current illness and aging may have affected, with the decreased the dose of Seroquel and gabapentin for tonight, reassess in a.m. again for lethargy and sluggishness. Titrate medications accordingly, consult psychiatrist for meds readjusting according to family's request. Continue her other medications including donepezil, Namenda, Sinemet, Lamictal, Geodon. #2 patient has 1.5 cm noted mass according to CT scan of her head no previous imaging is available. ? Inpatient biopsy versus outpatient workup. Need to discuss this with family
--- NOTE | 2016-04-13 20:05 | NUR ---
REPORT GIVEN TO LEON ESCALONA
--- NOTE | 2016-04-13 20:09 | NUR ---
Emergency Dept [facility] Admit Note: To be admitted to [facility] by DR VALERO with ENCEPHALOPATHY as the diagnosis, to [facility] MED[facility]OBSERVATION location. Nursing Tobacco Blender and admitting notified 04/13/16 at 1924 PT WILL GO TO ROOM 206-1
--- NOTE | 2016-04-13 20:12 | NUR ---
PT'S BED ASSIGNMENT HAS CHANGED. THEY WILL NOW GO TO ROOM 214
--- NOTE | 2016-04-13 20:46 | NUR ---
TRANSPORTED TO FLOOR
[2016-04-13 21:28] VITALS: BP 148/72
--- NOTE | 2016-04-14 05:32 | NUR ---
RECEIVED PATIENT LAST PM FROM ED. ALERT AND ORIENTED, SOMETIMES FORGETUL, EASILY REORIENTED. NIH STROK SCALE ZERO. VSS, AFEBRILE. ORIENTED TO 2NB, CALL [facility] WITHIN REACH. BED ALARM ON. GENERALIZED WEAKNESS, ASSIST OF ONE TO BSC.
[2016-04-14 06:53] VITALS: BP 122/60
--- NOTE | 2016-04-14 07:10 | PN- Housestaff ---
MICHELET VELA,RODOLFO 04/14/16 0645: Subjective Follow-up For: Generalized Weakness Complaints: no complaints Subjective: Seen examined bedside, sleeping comfortably. Quick to respond to voice. Alert oriented x 3. Reports sleeping well overnight. Review of Systems Constitutional: Reports: see HPI. Objective Last 24 Hrs of Vital Signs/I&O Vital Signs Date Time Temp Pulse Resp B/P Pulse O2 O2 Flow FiO2 Ox Delivery Rate 04/14 2127 99.1 73 20 148/72 94 Room Air 04/13 2043 65 14 130/60 04/13 1805 61 14 133/61 Room Air 04/13 1459 99.1 88 20 116/78 96 Room Air Intake & Output 04/14 0800 04/14 0000 04/13 1600 Intake Total 200 900 Output Total 400 Balance -200 900 Intake, IV 500 Intake, Oral 200 400 Output, Urine 400 Patient 165 lb Weight Physical Exam General Appearance: Alert, Oriented X3, Cooperative Skin: No Rashes, No Breakdown HEENT: Atraumatic, PERRLA, EOMI, Mucous Membr. moist/pink Neck: Supple, No JVD Cardiovascular: Regular Rate, Normal S1, Normal S2, No Murmurs Lungs: Clear to Auscultation, Normal Air Movement Abdomen: Normal Bowel Sounds, Soft, No Tenderness Neurological: Normal Speech, Strength at 5/5 X4 Ext, Sensation Intact, Cranial Nerves 3-12 NL Extremities: No Edema, Normal Pulses Current Medications: Current Medications Sig/[place] Start time Last Medication Dose Route Stop Time Status Admin Acetaminophen 650 MG Q6P PRN 04/13 2245 AC PO Acetaminophen 1,000 MG Q6P PRN 04/13 2245 AC IV Aspirin 81 MG DAILY 04/14 1000 AC PO Atorvastatin Calcium 20 MG 1700 04/14 1700 AC PO Carbidopa/Levodopa 1 TAB TID 04/13 2315 AC 04/14 PO 0020 Enoxaparin Sodium 40 MG DAILY 04/14 1000 AC SC Gabapentin 200 MG TID 04/14 1000 AC PO Gabapentin 400 MG TID 04/13 2315 DC 04/13 PO 2315 Memantine 5 MG BID 04/14 1000 AC PO Metoprolol Tartrate 12.5 MG BID 04/14 1000 AC PO Quetiapine Fumarate 200 MG QPM 04/14 2200 DC PO Quetiapine Fumarate 200 MG QPM 04/13 2359 AC 04/14 PO 0020 Sodium Chloride 500 ML BOLUS ONE 04/13 1515 DC 04/13 IV 04/13 1614 1539 Last 24 Hrs of Lab/[place] Results Last 24 Hrs of Labs/Mics: Laboratory Tests 04/13/16 1822: Ammonia < 9 L 04/13/16 1605: Anion Gap 5, Estimated GFR > 60, BUN/Creatinine Ratio 10.0, Glucose 91, Calcium 8.5, Total Bilirubin 0.4, AST 124 H, ALT 29, Alkaline Phosphatase 62, Creatine Kinase 111, Troponin I < 0.01, Total Protein 4.9 L, Albumin 2.8 L, Globulin 2.1, Albumin/Globulin Ratio 1.3, CBC w Diff NO MAN DIFF REQ, RBC 3.22 L, MCV 92.5, MCH 30.8, RDW 15.0 H, MPV 7.1 L, Gran % 73.0, Lymphocytes % 13.7 L, Monocytes % 10.1 H, Eosinophils % 2.9, Basophils % 0.3, Absolute Granulocytes 5.8, Absolute Lymphocytes 1.1 L, Absolute Monocytes 0.8 H, Absolute Eosinophils 0.2, Absolute Basophils 0, PUBS MCHC 33.3, Urine Opiates Screen < 100.00, Methadone Screen 43, Barbiturate Screen < 60, Ur Phencyclidine Scrn < 6.00, Amphetamines Screen < 100, U Benzodiazepines Scrn < 85, Urine Cocaine Screen < 50, Urine Cannabis Screen < 5.00, Urine Color YEL, Urine Clarity CLEAR, Urine pH 6.5, Ur Specific [place] <= 1.005, Urine Protein NEG, Urine Ketones NEG , Urine Nitrite NEG, Urine Bilirubin NEG, Urine Urobilinogen 0.2, Ur Leukocyte Esterase NEG, Ur Microscopic EXAM NOT REQUIRED, Urine Hemoglobin NEG, Urine Glucose NEG Assessment/Plan Assessment: 81-year-old lady with past medical history significant for Parkinson's, bipolar disease with psychosis, hyperlipidemia, hypertension, GERD, chronic constipation discharged yesterday after treated for viral gastroenteritis, hypokalemia. Returns to the hospital from her facility after having a an episode of lethargy, she was found to be confused and listless and thought to have a neurological deficit with gait imbalance. This time is felt that the lethargic and weakness is likely due to polypharmacy use. Though it appears she has been on this medication for extended appears of time. We have decreased her seroquel and gabapentin overnight. This will have to monitored throughout the day. Psychiatry should be consulted for medication adjustment per family request. 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 Previous CT exams of the head do not include the location of this mass for comparison. This will need to be addressed as outpatient. Hypertension, BP well controlled will continue home medications Hyperlipidemia continue home dose of lipitor Problem List: 1. Weakness 2. Essential hypertension 3. Parkinson's disease Pain Ratin Pain Location: no pain Pain Goal: Remain pain free Pain Plan: continue current regimen Tomorrow's Labs & Rationales: n/a labs MATT SANCHEZ MD 04/14/16 2279: Attending MD Review Statement Attending Statement Attending MD Statement: examined this patient, discuss w/resident/PA/TUBE BUFFER, agreed w/resident/PA/TUBE BUFFER, reviewed EMR data (avail) Attending Assessment/Plan: 81F PMH bipolar disorder, Parkinson's disease, dementia, HLD, recently discharged from for viral gastroenteritis returned from assisted living for lethargy. Patient was lethargic and slurring words yesterday. Today she is wide awake, talkative, cooperative, and displays no evidence of neurological dysfunction. Her Seroquel and Gabapentin had been lowered yesterday. She has no complaints, only concern about her medications. Vitals stable, labs unremarkable. Plan - Continue current dose of all medications - Monitor overnight, if mental status remains stable, can be discharged to assisted living facility tomorrow on current medications regimen - DVT PPx - FOllow up psychiatry recommendations
--- NOTE | 2016-04-14 08:16 | PN- Housestaff ---
Assessment/Plan Assessment: 81-year-old lady with past medical history significant for Parkinson's, bipolar disease with psychosis, hyperlipidemia, hypertension, GERD, chronic constipation discharged yesterday after treated for viral gastroenteritis, hypokalemia. Returns to the hospital from her facility after having a an episode of lethargy, she was found to be confused and listless and thought to have a neurological deficit with gait imbalance. This time is felt that the lethargic and weakness is likely due to polypharmacy use. Though it appears she has been on this medication for extended appears of time. We have decreased her seroquel and gabapentin overnight. This will have to monitored throughout the day. Psychiatry should be consulted for medication adjustment per family request. 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 Previous CT exams of the head do not include the location of this mass for comparison. This will need to be addressed as outpatient. Hypertension, BP well controlled will continue home medications Hyperlipidemia continue home dose of lipitor
[2016-04-14 15:15] VITALS: BP 140/81
[2016-04-14 22:00] VITALS: BP 160/82
[2016-04-15 06:37] VITALS: BP 142/62
--- NOTE | 2016-04-15 09:20 | PN- Housestaff ---
See Addendum Subjective Follow-up For: Parkinson's Parotid mass Weakness Subjective: Soft patient at bedside this a.m. and we spoke briefly about the possibility of discharge. Patient stated she did not feel comfortable leaving because she had not ambulated more than a few steps out of her bed she felt weak and deconditioned. Has a bed waiting and patient chronic E as she is on September status. We are still pending psych consult for medication management. Otherwise patient states she feels well today. No acute overnight events. No complaints. Review of Systems Constitutional: Reports: no symptoms. EENTM: Reports: no symptoms. Cardiovascular: Denies: chest pain, palpitations. Respiratory: Denies: cough, short of breath. Gastrointestinal: Denies: bloating, constipation, diarrhea, vomiting. Genitourinary: Reports: no symptoms. Musculoskeletal: Denies: back pain, joint pain, muscle pain, muscle stiffness. Objective Last 24 Hrs of Vital Signs/I&O Vital Signs Date Time Temp Pulse Resp B/P Pulse O2 O2 Flow FiO2 Ox Delivery Rate 04/15 0637 98.1 69 20 142/62 95 / 2200 98.9 65 18 160/82 96 Room Air 04/14 2106 65 160/82 / 1515 98.5 73 20 140/81 97 Room Air / 0948 62 112/60 Intake & Output / 1600 04/15 0800 03/ 0000 Intake Total 240 600 Output Total 875 300 Balance -635 300 Intake, Oral 240 600 Number 1 Bowel Movements Output, Urine 875 300 Physical Exam General Appearance: Alert, Oriented X3, Cooperative, No Acute Distress Skin: No Rashes, No Breakdown, No Significant Lesion HEENT: Atraumatic, PERRLA, EOMI Neck: Supple Cardiovascular: Regular Rate, Normal S1, Normal S2 Lungs: Clear to Auscultation Abdomen: Normal Bowel Sounds, Soft Neurological: Normal Speech Extremities: No Edema Assessment/Plan Assessment: 81-year-old lady with past medical history significant for Parkinson's, bipolar disease with psychosis, hyperlipidemia, hypertension, GERD, chronic constipation discharged yesterday after treated for viral gastroenteritis, hypokalemia. Returns to the hospital from her facility after having a an episode of lethargy, she was found to be confused and listless and thought to have a neurological deficit with gait imbalance. Lethargy: Patient's lethargy and weakness was thought to be secondary to polypharmacy. However, she has been on the same medication regimen for extended period time. Patient; gabapentin were decreased yesterday she seems to be responding well. Parents requested psychiatry due to complete medication reconciliation. * Follow-up psych recommendations Left parotid mass: CT imaging shows 1.5 cm ovoid mass left parotid gland. We were unable to correlate this finding with previous imaging is previous CTs including location of the mass comparison. At this time, family does not want biopsy * Follow-up outpatient Hypertension: Blood pressure is well controlled at this time we will continue her home regimen Hyperlipidemia: Chronic and stable * Continue home Lipitor Problem List: 1. Weakness 2. Parkinson's disease Pain Ratin Pain Location: NONE Pain Goal: Remain pain free Pain Plan: CURRENT REG Tomorrow's Labs & Rationales: CBC BEP DVT/Prophylaxis: pharmacological
[2016-04-15 14:33] VITALS: BP 110/62
[2016-04-15 23:42] VITALS: BP 132/88
[2016-04-16 00:53] VITALS: BP 166/70
[2016-04-16 06:52] VITALS: BP 128/66
--- NOTE | 2016-04-16 07:10 | PN- Housestaff ---
GUERITA VELA,[facility] 04/16/16 0710: Subjective Follow-up For: Generalized Weakness Subjective: Patient was seen and examined this morning. She is alert oriented 3, endorses improvement of her weakness, she used the bedside commode. She denied dizziness or lightheadedness, chest pain, palpitation, shortness of breath, abdominal pain , nausea or vomiting. She reported history of chronic varicocele bilateral lower extremity that was operated in the past. Review of Systems Constitutional: Reports: see HPI. Objective Last 24 Hrs of Vital Signs/I&O Vital Signs Date Time Temp Pulse Resp B/P Pulse O2 O2 Flow FiO2 Ox Delivery Rate 04/16 1504 98.1 73 20 154/80 95 Room Air 04/16 1310 Room Air 04/16 1012 69 128/66 04/16 0652 98.8 69 20 128/66 97 / 0053 74 19 166/70 98 04/15 2342 97.6 78 18 132/88 96 Room Air 04/15 2249 118/64 Intake & Output 04/16 1600 04/16 0800 04/16 0000 Intake Total 720 150 Output Total 500 800 Balance 220 -800 150 Intake, Oral 720 150 Number 0 Bowel Movements Output, Urine 500 800 Physical Exam General Appearance: Alert, Oriented X3, Cooperative, No Acute Distress Skin: No Rashes, No Breakdown, No Significant Lesion HEENT: Atraumatic, PERRLA, EOMI, Mucous Membr. moist/pink Neck: Supple Cardiovascular: Regular Rate, Normal S1, Normal S2, No Murmurs Lungs: Clear to Auscultation, Normal Air Movement Abdomen: Normal Bowel Sounds, Soft, No Tenderness Neurological: Normal Gait, Normal Speech, Strength at 5/5 X4 Ext, Normal Tone, Sensation Intact, Cranial Nerves 3-12 NL, Reflexes 2+ Extremities: No Clubbing, No Cyanosis, No Edema, Normal Pulses Assessment/Plan Assessment: 81-year-old lady with past medical history significant for Parkinson's, bipolar disease with psychosis, hyperlipidemia, hypertension, GERD, chronic constipation discharged on 04/12/16 after treated for viral gastroenteritis, hypokalemia. Returns to the hospital from her facility after having a an episode of lethargy, she was found to be confused and listless and thought to have a neurological deficit with gait imbalance. His CT was obtained on admission that revealed IMPRESSION: 1. No acute intracranial pathology. 2. 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 Consider ultrasound with imaged guided biopsy. Problem list #Generalized weakness #Left parotid mass #Generalized weakness -Could be secondary to polypharmacy -I contacted [facility] today to confirm patient's medication list -Psych evaluation was obtained for medication reconciliation -Will follow-up psych recommendation #Left parotid mass -CT imaging shows 1.5 cm ovoid mass left parotid gland -We were unable to correlate this finding with previous imaging is previous CTs including location of the mass comparison. At this time, family does not want biopsy -Follow-up outpatient #Hypertension -Lopressor 12.5 twice a day -Aspirin 81 mg by mouth daily #Hyperlipidemia -Atorvastatin 20 mg by mouth daily -Code DNR/DNI -DVT prophylaxis Lovenox -Diet regular -Consultation psychiatric Problem List: 1. Anxiety disorder 2. Essential hypertension 3. Parkinson's disease 4. Weakness Pain Ratin Pain Location: None Pain Goal: Pain 4 or less Pain Plan: Mild pain pathway Tomorrow's Labs & Rationales: None ROMULO HERNANDEZ MD 04/16/16 6532: Attending MD Review Statement Attending Statement Attending MD Statement: examined this patient, discuss w/resident/PA/BIZTALK CONSULTANT, agreed w/resident/PA/BIZTALK CONSULTANT, reviewed EMR data (avail), discussed with nursing, discussed with case mgmt, amended to note Attending Assessment/Plan: The patient was seen and discussed with house staff.
--- NOTE | 2016-04-16 08:45 | Discharge Summary ---
See Addendum Visit Information Visit Dates Admission Date: 04/13/16 Discharge Date: 04/17/2016 Hospital Course Course Attending Physician: ROMULO HERNANDEZ MD Primary Care Physician: YVAN VELA,[facility] Hospital Course: Mrs Moreno is an 81-year-old lady with a HTN, HLD, CAD s/p negative cardia cath, GERD, pancreatitis s/p ERCP, Parkinson's dementia, anxiety disorder, and restless leg syndrome recently treated for viral gastroenteritis with associated hypokalemia and discharged to [facility] and brought back due to lethargy, confusion and listlessness. Patient's daughter was particularly concerned about her significant lethargy and appearance of being more tired than normal. In the setting of her multiple psychiatric medications there was concern that this may be contribution to her symptoms. VS on admission: AP 116/78, HR 80, RR 20, SPO2 96% on RA, T 99.1 PE on admission: AAO X 3, no acute distress. Mucous membranes pink and moist. RRR, normal S1/S2. Lungs CTA BL. Abdomen normal bowel sounds, no tenderness to palpation. No: Normal gait, normal speech, sensation intact 3 through 12 intact , strength 4/5 in all 4 extremities. Extremities with no evidence of edema Pertinent labs on admission: WBC 8.0, H&H 9.9/29.8, sodium 137, potassium 4.1, bicarbonate 31, BUN/08/0.8, AST/ALT 124/29 UA and urine tox unremarkable The patient was admitted to the general medicine floor for management of the following problems: 1. Generalized weakness 2. Left-sided parotid mass 3. Parkinson's dementia 4. Hypertension 5. Hyperlipidemia Hospital course: 1. Generalized weakness: Likely secondary to decompensation in the setting of recent viral illness * Started patient on gentle hydration with normal saline. Noticeable improvement in energy level over the hospital course. Patient was assessed by physical therapy and postdischarge recommendations are for continued short-term rehabilitation 2. Left-sided parotid mass * Incidental finding on left parotid. 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 Recommend postdischarge follow-up with ultrasound 3. Parkinson's dementia * Continue home dose of Namenda 4. Hypertension * Elevation in blood pressure during hospital course, SBP in the 160s * Continue on metoprolol titrate 12.5 mg PO BID 5. Transaminitis * New onset elevation in AST. This could have been attributed to her recent viral infection. Patient has also been on atorvastatin 20 mg daily. In the setting of her multiple psychiatric medications that can be C/I in hepatic impairment, we will temporarily discontinue atorvastatin and recommend follow-up LFTs and 1-2 weeks prior to restarting the statin atorvastatin. 6. Bipolar disorder: * The patient has been on multiple medications which were temporarily held on admission out of concern to be partially contribution to her profound lethargy. We consulted with our inpatient psychiatrist Jason Bean APRN who assisted us extensively with management of restarting her medications * The patient has an extensive psychiatric history with bipolar disorder, 2 previous admissions to [facility] last 40 years ago. She reports 26 sessions of ECT therapy. Home medications confirmed by her psychiatrist Dr. Grant Sahni: Aricept 10 mg by mouth at bedtime Namenda 10 mg by mouth 2 times per day Gabapentin 400 mg by mouth 3 times per day Lamotrigine 400 mg by mouth daily, take in the p.m. if sedated Levetiracetam 250 mg by mouth daily Lorazepam 0.5 mg by mouth daily as needed for anxiety Quetiapine 600 mg by mouth at 2130 Quetiapine 25 mg by mouth up to 3 times per day as needed. Hold for sedation. Ziprasidone/Geodon 40 mg by mouth at dinnertime * After discussion between Jason Bean APRN, Jordan Gomez MD (chair or psychiatry at [facility]) and Dr. Grant Sahni, it was believed that the patient's dosing and timing of her ziprasidone/Geodon may have contributed to her feeling of weakness and lethargy. Current plan is to start her on the following simplified regimen, monitor her in the a.m. and adjust dosages accordingly. Post discharge, the other medications can be reintroduced as needed after psychiatric consultation at the receiving facility. a. Please hold lamotrigine/Lamictal. b. Please hold levetiracetam/Keppra, used off-label for bipolar d/o. c. Please hold lorazepam/Ativan. d. Please hold ziprasidone/Geodon e. Continue quetiapine/Seroquel 200 mg by mouth at bedtime f. Continue memantine 5 mg PO 2 times per day g. Continue gabapentin 200 mg by mouth 3 times per day as needed for anxiety h. Consider adding quetiapine/Seroquel 25 mg PO every 6 hours as needed for anxiety or agitation * Psychiatric consult to be obtained once patient arrives at receiving facility Allergies: Coded Allergies: adhesive tape (UNKNOWN 04/09/16) codeine (UNKNOWN 04/09/16) hydrocortisone (UNKNOWN 04/09/16) prednisone (UNKNOWN 04/09/16) Disposition Summary Disposition Principal Diagnosis: Lethargy/generalized weakness Additional Diagnosis: Bipolar disorder Hypertension Hyperlipidemia Discharge Disposition: SNF Discharge Instructions General Discharge Information Code Status: Do Not Resucitate/Intubat Patient's Diet: Regular diet Patient's Activity: As tolerated Follow-Up Instructions/Appts: Please follow-up with her PCP within 1-2 weeks after discharge. Please follow-up with your psychiatrist within 1-2 weeks after discharge Please take all medications as directed Medications at Discharge Discharge Medications: Stop taking the following medications: Gabapentin (Neurontin) 400 MG CAPSULE ORAL THREE TIMES DAILY Lorazepam (Ativan) 0.5 MG TABLET ORAL DAILY Ziprasidone HCl (Geodon) 80 MG CAPSULE ORAL DAILY Levetiracetam (Keppra) 250 MG TABLET ORAL DAILY Atorvastatin Calcium (Lipitor) 20 MG TABLET ORAL Every night Quetiapine Fumarate (Seroquel) 400 MG TABLET ORAL Every night Quetiapine Fumarate (Seroquel) 25 MG TABLET ORAL THREE TIMES A DAY NEEDED as needed for MOOD Lamotrigine (Lamictal) 200 MG TABLET ORAL DAILY Continue taking these medications: Donepezil HCl (Aricept) 10 MG TABLET 1 Tablet ORAL Every night Comments: NOT GIVE IN HOSPTIAL Memantine HCl (Namenda) 5 MG TABLET 1 Tablet ORAL TWICE DAILY Comments: Last Taken: 04/17/16 Time: 9:00 AM Carbidopa/Levodopa (Sinemet Cr 50-200 Tablet) 50 MG-200 MG TABLET.ER 1 Tablet ORAL THREE TIMES DAILY Comments: Last Taken: 04/17/16 Time: 9:00 AM Aspirin (Aspirin*) 81 MG TAB.CHEW 1 Tablet ORAL DAILY Comments: Last Taken: 04/17/16 Time: 9:00 AM Omeprazole (Omeprazole) 40 MG CAPSULE.DR 1 Capsule ORAL DAILY Comments: Last Taken:04/12/16 Time:0700 Quetiapine Fumarate (Seroquel) 100 MG TABLET 2 Tablet ORAL Every night Comments: Last Taken: 04/17/16 Time: 9:00 PM Metoprolol Tartrate (Metoprolol Tartrate) 25 MG TABLET 12.5 Milligram ORAL TWICE DAILY Qty = 30 Comments: Last Taken: 04/17/16 Time: 9:00 AM Start taking the following new medications: Quetiapine Fumarate (Seroquel) 25 MG TABLET 1 Tablet ORAL EVERY SIX HOURS as needed for Anxiety/agitation Qty = 30 No Refills Comments: NOT GIVEN IN HOSPITAL Gabapentin (Gabapentin) 100 MG CAPSULE 2 Capsule ORAL THREE TIMES DAILY Qty = 60 No Refills Comments: Last Taken: 04/17/16 Time: 9:00 AM Copies To: YVAN VELA,NATI; JEREMY LOVE,NAT Mcginnis; ISRAEL VELA PhD,LEONARDO De Santiago; MAICOL VELA, JORDAN Rodriguez MD Review Statement Documenting Attending: ROMULO HERNANDEZ MD Other Findings: The patient was seen and discussed with house staff and psychiatry. Psychiatric medications to be adjusted by OP psychiatrist (Dr. Sahni).
[2016-04-16 08:54] LABS: ABSOLUTE BASOPHIL COUNT 0 /CUMM (0.0-0.2); ABSOLUTE EOSINOPHIL COUNT 0.2 /CUMM (0.0-0.7); BASOPHIL % 0.4 % (0.0-2.0); EOSINOPHIL % 2.5 % (0-5); GRANULOCYTE % 64.9 % (42.2-75.2); HEMATOCRIT 31.2 % (37-47); MEAN CORPUSCULAR HGB 30.5 PG (27.0-31.0); MEAN CORPUSCULAR HGB CONC 32.9 G/DL (33.0-37.0); MEAN CORPUSCULAR VOLUME 92.8 FL (81.0-99.0); MEAN PLATELET VOLUME 7.3 FL (7.4-10.4); PLATELET COUNT 372 /CUMM (130-400); RBC DISTRIBUTION WIDTH 14.7 % (11.5-14.5); RED BLOOD CELL CT 3.36 /CUMM (4.20-5.40); WHITE BLOOD CELL COUNT 9.3 /CUMM (4.8-10.8)
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
[2016-04-16 15:04] VITALS: BP 154/80
--- NOTE | 2016-04-16 15:53 | Patient Discharge Instructions ---
Discharge Instructions General Discharge Information You were seen/treated for: Generalized weakness Left-sided parotid mass Medication adjustments Watch for these problems: Fevers, chills, confusion, headache, blurry vision, worsening generalized weakness Special Instructions: Please follow-up with her PCP within one week of discharge. PLEASE OBTAIN PSCYHIATRIC CONSULT SOON SHE GETS TO THE RECEIVING FACILITY! !! Please take all medications as directed. Please follow-up with the PCP for outpatient ultrasound of your parathyroid gland. Diet Continue normal diet: Yes Activity Full Activity/No Limits: Yes Acute Coronary Syndrome Inclusion Criteria At DC or during hospital stay patient has or had the following: ACS DIAGNOSIS No Discharge Core Measures Meds if any: Prescribed or Continued at Discharge Meds if any: NOT Prescribed or Continued at Discharge Congestive Heart Failure Inclusion Criteria At DC or during hospital stay patient has or had the following: CHF DIAGNOSIS No Discharge Core Measures Meds if any: Prescribed or Continued at Discharge Meds if any: NOT Prescribed or Continued at Discharge Cerebrovascular accident Inclusion Criteria At DC or during hospital stay patient has or had the following: CVA/TIA Diagnosis No Discharge Core Measures Meds if any: Prescribed or Continued at Discharge Meds if any: NOT Prescribed or Continued at Discharge Venous thromboembolism Inclusion Criteria VTE Diagnosis No VTE Type NONE VTE Confirmed by (Test) NONE Discharge Core Measures - Per Current guidelines, there needs to be overlap - treatment for the first 5 days of Warfarin therapy. - If discharged on Warfarin prior to 5 days of - overlap therapy, the patient will need to be - assessed for post discharge needs including - *Post discharge parental anticoagulation - *Warfarin and/or parental anticoagulation education - *Follow up date to check INR post discharge At least 5 days overlap therapy as Inpatient No Meds if any: Prescribed or Continued at Discharge Note: Overlap Therapy is Warfarin and Anticoagulant Meds if any: NOT Prescribed or Continued at Discharge
[2016-04-16 22:15] VITALS: BP 140/78
[2016-04-17 06:08] VITALS: BP 115/60
[2016-04-17] MEDS ORDERED: SEROQUEL25 M1 PO (06:42)
[2016-04-17] MEDS ORDERED: GABAPENTIN100 M2 PO (06:47)
--- NOTE | 2016-04-17 07:07 | PN- Housestaff ---
GUERITA VELA,[facility] 04/17/16 0707: Subjective Follow-up For: Generalized Weakness Bipolar disorder Subjective: The patient was seen and examined this morning. She feels anxious 08/20. Her biggest consern is that she does not want to be discharged and to come back feeling worse. Her vital signs are stable, no overnight events reported by the nurse or the patient. Review of Systems Constitutional: Reports: see HPI. Objective Last 24 Hrs of Vital Signs/I&O Vital Signs Date Time Temp Pulse Resp B/P Pulse O2 O2 Flow FiO2 Ox Delivery Rate 04/17 0608 98.0 70 20 115/60 98 Room Air 04/16 2215 76 20 140/78 94 Room Air 04/16 2110 78 172/90 04/16 1504 98.1 73 20 154/80 95 Room Air 04/16 1310 Room Air 04/16 1012 69 128/66 Intake & Output 04/17 0800 04/17 0000 04/16 1600 Intake Total 240 960 720 Output Total 300 500 Balance -60 960 220 Intake, Oral 240 960 720 Number 0 Bowel Movements Output, Urine 300 500 Physical Exam General Appearance: Alert, Oriented X3, Cooperative, No Acute Distress Skin: No Rashes, No Breakdown, No Significant Lesion HEENT: Atraumatic, PERRLA, EOMI, Mucous Membr. moist/pink Neck: Supple Cardiovascular: Regular Rate, Normal S1, Normal S2, No Murmurs Lungs: Clear to Auscultation, Normal Air Movement Abdomen: Normal Bowel Sounds, Soft, No Tenderness Neurological: Normal Gait, Normal Speech, Strength at 5/5 X4 Ext, Normal Tone, Sensation Intact, Cranial Nerves 3-12 NL, Reflexes 2+ Extremities: No Clubbing, No Cyanosis, No Edema, Normal Pulses Assessment/Plan Assessment: 81-year-old lady with past medical history significant for Parkinson's, bipolar disease with psychosis, hyperlipidemia, hypertension, GERD, chronic constipation discharged on 04/12/16 after treated for viral gastroenteritis, hypokalemia. Returns to the hospital from her facility after having a an episode of lethargy, she was found to be confused and listless and thought to have a neurological deficit with gait imbalance. His CT was obtained on admission that revealed IMPRESSION: 1. No acute intracranial pathology. 2. 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 Consider ultrasound with imaged guided biopsy. Problem list #Generalized weakness #Left parotid mass #Generalized weakness -Could be secondary to polypharmacy -I contacted [facility] today to confirm patient's medication list -Psych evaluation was obtained for medication reconciliation -Continue quetiapine/Seroquel 200 mg by mouth at bedtime -Continue memantine 5 mg PO 2 times per day -Continue gabapentin 200 mg by mouth 3 times per day as needed for anxiety -Hold lamotrigine/Lamictal -Hold levetiracetam/Keppra, used off-label for bipolar -Hold lorazepam/Ativan -Hold ziprasidone/Geodon -Consider adding quetiapine/Seroquel 25 mg PO every 6 hours as needed for anxiety or agitation -recommendation to repeat UA, negative results #Left parotid mass -CT imaging shows 1.5 cm ovoid mass left parotid gland -We were unable to correlate this finding with previous imaging is previous CTs including location of the mass comparison. At this time, family does not want biopsy -Follow-up outpatient #Hypertension -Lopressor 12.5 twice a day -Aspirin 81 mg by mouth daily #Hyperlipidemia -Atorvastatin 20 mg by mouth daily -Code DNR/DNI -DVT prophylaxis Lovenox -Diet regular -Consultation psychiatric -Patient is for discharge today on her current medication. Problem List: 1. Parkinson's disease 2. Weakness Pain Ratin Pain Location: NONE Pain Goal: Pain 4 or less Pain Plan: Mild pain pathway Tomorrow's Labs & Rationales: NONE ROMULO HERNANDEZ MD 04/17/16 1215: Attending MD Review Statement Attending Statement Attending MD Statement: examined this patient, discuss w/resident/PA/SANFORIZING MACHINE OPERATOR, agreed w/resident/PA/SANFORIZING MACHINE OPERATOR, reviewed EMR data (avail), discussed with nursing, discussed with case mgmt, amended to note Attending Assessment/Plan: The patient was seen and discussed with house staff and psychiatry. Agree with plan of care as outlined.
[2016-04-17 12:30] VITALS: BP 116/64
--- NOTE | 2016-04-17 14:11 | PN- Psychiatry ---
Assessment/Plan Impression: The patient is in agreement with the trial of the current reduced medication regimen, but states, "I don't want to get caught short with anxiety attacks." During our discussion today, the patient was calmer than yesterday, but with more visible tremor, suggesting that without the Geodon, currently held, and with the reduced dosing of Seroquel, the Sinamet might be adjusted for her Parkinsons disease. She is amenable to returning to Dr. Sahni's care after her rehab stay and would like to return to her therapist, Kathi, if transportation can be arranged. Suggestion: 1. Continue the psychotropic medications as discussed with the medical team this morning: Gabapentin 200 mg PO 3X/day PRN Quetiapine 200 mg PO at bedtime Consider adding quetiapine 25 mg PO 3X/day PRN for anxiety/agitation. Aricept and Namenda, as currently ordered. 2. Please make the receiving facility aware of the patients prior home med list, as detailed in my note yesterday. These should only be considered for restart after a psychiatric evaluation at the receiving rehab facility. Please request a psychiatric evaluation at the facility. 3. Consider adjustment of the Sinamet dosing for her movement disorder/ Parkinsons. 4. Please request a discharge summary be sent to Dr. Sahni, her psychiatrist in [place]. We will continue to follow along. Jonnathan Bean APRN, Pager [phone] Subjective Subjective: Alert and oriented. Sound sleep from 11PM, but awoke several time to urinate; she had previously slept through when on the higher dose of Seroquel and the Geodon. Depression scaled at 10/10, which she thinks will resolve when she is discharged. She does not reply to a request to scale her anxiety. 10/10 would be the most severe. Denies SI/HI. Visible tremor noted. Reports that after a discussion with her daughter, Nayeli, yesterday, she has decided, " I want to make changes, and keep doing what we are doing [with the medications]." Objective Last 24 Hrs of Vital Signs/I&O Vital Signs Date Time Temp Pulse Resp B/P Pulse O2 O2 Flow FiO2 Ox Delivery Rate 04/17 1230 98.0 70 20 116/64 04/17 0859 70 116/64 04/17 0608 98.0 70 20 115/60 98 Room Air 04/16 2215 76 20 140/78 94 Room Air / 2110 78 172/90 03/ 1504 98.1 73 20 154/80 95 Room Air Intake & Output 04/17 1600 03/ 0800 03/ 0000 Intake Total 240 960 Output Total 300 Balance -60 960 Intake, Oral 240 960 Output, Urine 300 Patient 165 lb Weight Current Medications: Current Medications Sig/[place] Start time Last Medication Dose Route Stop Time Status Admin Acetaminophen 650 MG Q6P PRN 04/13 2245 AC PO Acetaminophen 1,000 MG Q6P PRN 04/13 2245 AC IV Aspirin 81 MG DAILY 04/14 1000 AC 04/17 PO 0859 Atorvastatin Calcium 20 MG 1700 04/14 1700 AC 04/16 PO 1623 Carbidopa/Levodopa 1 TAB TID 04/13 2315 AC 04/17 PO 0859 Enoxaparin Sodium 40 MG DAILY 04/14 1000 AC 04/17 SC 0900 Gabapentin 200 MG TID 04/14 1000 AC 04/17 PO 0900 Memantine 5 MG BID 04/14 1000 AC 04/17 PO 0900 Metoprolol Tartrate 12.5 MG BID 04/14 1000 AC 04/17 PO 0859 Patient Medication 1 ED .[facility] ONE 04/16 1403 DC Teaching ED 04/16 1404 Quetiapine Fumarate 25 MG TID PRN 04/17 1030 AC PO Quetiapine Fumarate 200 MG QPM 04/13 2359 AC 04/16 PO 2110
== END 2016-04-17 14:09 ==
LOC: ENRESERVTM → ENRESERVDT → ERH 14:57 → ENPENDDIS 18:24 → ERHI 18:24 → 2NB 18:24
PROVIDERS: Emergency Medicine; Student in an Organized Health Care Education/Training Program; ADMIT Internal Medicine
DX: G93.40 Encephalopathy, unspecified (principal); R53.1 Weakness; G20 Parkinson's disease; G25.81 Restless legs syndrome; I25.10 Atherosclerotic heart disease of native coronary artery without angina pectoris; I10 Essential (primary) hypertension; E78.5 Hyperlipidemia, unspecified; K21.9 Gastro-esophageal reflux disease without esophagitis; I25.2 Old myocardial infarction; F31.9 Bipolar disorder, unspecified; F41.9 Anxiety disorder, unspecified; F32.9 Major depressive disorder, single episode, unspecified
CPT/HCPCS: 36415; 80307; 81001; 81003; 82436; 93005; 93010; 97110-GP; 97116-GP; 97161-GP; 99232; G0378; G8978-GP; G8979-GP; J1650; J3490; J7040

== ENCOUNTER 2016-08-28 11:24 | Emergency (ER) | payer OTHER, MEDICARE ==
[~2016-08-28] VITALS: Ht 162.6 cm; Wt 73.9 kg
[~2016-08-28 11:24] MED LIST changes: +GABAPENTIN100 M2 PO
--- NOTE | 2016-08-28 11:32 | ED GENERAL ADULT ---
History of Present Illness General Chief Complaint: Fall Stated Complaint: BIBA, LAC TO FOREHEAD S/P FALL Source: patient, family Exam Limitations: poor historian Vital Signs & Intake/Output Vital Signs & Intake/Output Vital Signs Date Time Temp Pulse Resp B/P B/P Pulse O2 O2 Flow FiO2 Mean Ox Delivery Rate 08/28 1452 98.3 89 12 124/74 100 Room Air 08/28 1217 99 Room Air 08/28 1126 97.6 62 19 140/65 96 Room Air Allergies Coded Allergies: adhesive tape (UNKNOWN 04/09/16) codeine (UNKNOWN 04/09/16) hydrocortisone (UNKNOWN 04/09/16) prednisone (UNKNOWN 04/09/16) Reconcile Medications Acetaminophen (Tylenol) 325 MG TABLET 2 TAB PO TID PAIN (Reported) Aspirin (Aspirin*) 81 MG TAB.CHEW 1 TAB PO DAILY HEART HEALTH (Reported) Atorvastatin Calcium (Lipitor) 20 MG TABLET 1 TAB PO DAILY CHOLESTEROL ( Reported) Carbidopa/Levodopa (Carbidopa-Levo ER 50-200 Tab) 50 MG-200 MG TABLET.ER 1 TAB PO TID PARKINSONS (Reported) Docusate Sodium (Colace) 100 MG CAPSULE 1 CAP PO BID CONSTIPATION (Reported) Donepezil HCl (Aricept) 10 MG TABLET 1 TAB PO QPM DEMENTIA (Reported) Furosemide 20 MG TABLET 1 TAB PO DAILY WATER RETENTION (Reported) Gabapentin (Neurontin) 300 MG CAPSULE 1 CAP PO TID ANXIETY (Reported) Memantine HCl (Namenda) 5 MG TABLET 1 TAB PO BID DEMENTIA (Reported) Metoprolol Tartrate 25 MG TABLET 12.5 MG PO BID Heart Omeprazole 40 MG CAPSULE.DR 1 CAP PO DAILY GI (Reported) Quetiapine Fumarate (Seroquel) 100 MG TABLET 2 TAB PO QPM SLEEP (Reported) Quetiapine Fumarate (Seroquel) 25 MG TABLET 1 TAB PO Q6 PRN Anxiety/agitation Triage Note: PT BIBA FROM [facility] WHERE SHE HAD A MECHANICAL FALL TODAY. PT DENIES LOC. PT HAS LAC ON LEFT SIDE OF FOREHEAD, BLEEDING CONTROLLED. PT DENIES BLOOD THINNERS. PT ALSO STATES LEFT ARM PAIN FROM TRYING TO BREAK FALL. PT IS AXO X3, NAD Triage Nurses Notes Reviewed? yes Onset: Abrupt Duration: hour(s): Timing: recent history HPI: 08/28/16 12 PM 81-year-old female presents to the emergency department for a mechanical slip and fall. She was walking with her walker and tried to make the corner turn too sharp and tripped falling and hitting her head. She complains of left upper arm pain and also has a laceration to her left forehead. She is on baby aspirin. She denies neck pain, abdominal pain, or other complaints. The onset of the symptoms was abrupt, the duration was just today, the severity is significant; as her symptoms required her to come to the emergency department for care. Past History Travel History Traveled to [place] past 21 day No Medical History Any Pertinent Medical History? see below for history Neurological: Parkinson's disease, restless leg syndrome EENT: NONE Cardiovascular: CAD (s/p NSTEMI), hypertension, hyperlipidemia Respiratory: NONE Gastrointestinal: GERD, pancreatitis, cholangitis s/p ERCP with sphincterotomy Hepatic: NONE Renal: NONE Musculoskeletal: NONE Psychiatric: bipolar disease, anxiety depression Endocrine: NONE Blood Disorders: NONE Cancer(s): NONE NATURAL FABRICATOR/Reproductive: NONE Other Medical Hx: Hypertension, dyslipidemia, nonST elevation DE, bipolar disorder, anxiety, cholecystectomy, cholangitis secondary to ERCP and sphincterotomy in 1997, pancreatitis secondary to ERCP, bladder and rectal distention x 2, hysterectomy, repair of deviated septum, tonsillectomy, tarsal tunnel repair History of MRSA: No History of VRE: No History of CDIFF: No Influenza Vaccine: 11/12/15 Surgical History Surgical History: cholecystectomy, hysterectomy, bladder and rectal surgery repair of deviated septum tonsillectomy tarsal tunnel repair Psychosocial History Who do you live with Patient/Self Services at Home None What is your primary language Sinhala Tobacco Use: Never used ETOH Use: denies use Illicit Drug Use: denies illicit drug use Family History Hx Contributory? No Review of Systems Review of Systems Constitutional: Reports: no symptoms. EENTM: Reports: see HPI. Respiratory: Reports: no symptoms. Cardiovascular: Reports: no symptoms. GI: Reports: no symptoms. Genitourinary: Reports: no symptoms. Musculoskeletal: Reports: see HPI. Skin: Reports: see HPI. Neurological/Psychological: Reports: no symptoms. Hematologic/Endocrine: Reports: no symptoms. Immunologic/Allergic: Reports: no symptoms. All Other Systems: Reviewed and Negative Physical Exam Physical Exam General Appearance: alert, awake, anxious, mild distress Head: lacerations Eyes: Bilateral: normal appearance, PERRL, EOMI. Ears, Nose, Throat: normal pharynx, hearing grossly normal Neck: supple, full range of motion Respiratory: chest non-tender, no respiratory distress Cardiovascular: regular rate/rhythm Peripheral Pulses: 4+ radial (R), 4+ radial (L) Gastrointestinal: non-tender Back: decreased range of motion Extremities: normal inspection, tenderness Neurologic/Psych: awake, alert Skin: intact, normal color, warm/dry Comments: Physical examination is significant for a 1 inch laceration over the left supraorbital area. Neck is completely nontenderl. She has mild tenderness to the left proximal humerus. CT scan of the head is negative for intracranial bleed or fracture X-ray of the left shoulder and left humerus are negative for fracture. She was given a tetanus shot. She was given Tylenol for pain. Procedure Under sterile technique and local anesthesia. 5 mL of lidocaine 1% without epinephrine was utilized. The wound was closed by the PA student under my supervision. 6 5-0 nylon sutures were utilized. There was excellent approximation. Bacitracin and a sterile dressing was applied. Core Measures ACS in differential dx? No CVA/TIA Diagnosis: No Severe Sepsis Present: No Septic Shock Present: No Progress Differential Diagnoses I considered the following diagnoses in my evaluation of the patient: [ Intracranial bleed, fracture, laceration, foreign body] Plan of Care: Orders Procedure Date/time Status XRY-SHOULDER COMPLETE-LEFT 08/28 1148 Active XRY-HUMERUS, LEFT 08/[address] HEAD WO IV CONTRAST 08/28 1148 Active Initial ED EKG: none Departure Departure Disposition: STILL A PATIENT Condition: Stable Clinical Impression Primary Impression: Fall Secondary Impressions: Contusion, Laceration Referrals: NATI SANTORO MD (PCP/Family) Departure Forms: Customer Survey General Discharge Information Comments The patient clearly had a witnessed trip and fall. No chest pain. The x-ray was read by the radiologist as negative for fracture dislocation. The family was instructed that should she continue to have pain she should follow-up and further imaging may be warranted. They were instructed to have the sutures removed in 6 days. Critical Care Note Critical Care Note Critical Care Time: non-applicable
[2016-08-28] MEDS ORDERED: CARBIDOPA-LEVO1 EAC9 PO (11:59)
[2016-08-28] MEDS ORDERED: NEURONTIN300 M1 PO (12:01)
[2016-08-28] MEDS ORDERED: COLACE100 M1 PO (12:01)
[2016-08-28] MEDS ORDERED: FUROSEMIDE20 M1 PO (12:02)
[2016-08-28] MEDS ORDERED: TYLENOL325 M1 PO (12:02)
[2016-08-28] MEDS ORDERED: LIPITOR20 M2 PO (12:03)
--- NOTE | 2016-08-28 13:05 | RADIOLOGY REPORT ---
EXAMINATION: XR HUMERUS, LEFT XR SHOULDER, LEFT CLINICAL INFORMATION: Status post fall. Rule out fracture in the left shoulder and humerus. COMPARISON: None TECHNIQUE: 3 views of the left shoulder and 2 views of the left humerus are obtained. FINDINGS: Glenohumeral and acromioclavicular joint alignments are normal. Mild degenerative changes are noted at the glenohumeral and acromioclavicular joints. The elbow joint alignment is maintained. There is no evidence of acute fracture or dislocation in the left shoulder and left humerus. No soft tissue air or radiopaque foreign body. IMPRESSION: No evidence of acute osseous abnormality in the left shoulder and left humerus. Mild degenerative changes in the left shoulder.
--- NOTE | 2016-08-28 13:52 | CT SCAN REPORT ---
EXAMINATION: CT HEAD WITHOUT CONTRAST CLINICAL INFORMATION: Status post fall. Rule out intracranial hemorrhage. COMPARISON: CT head 04/13/2016 TECHNIQUE: Contiguous axial imaging was performed from the skull base to vertex without intravenous administration of contrast. DLP: 638.21 mGy-cm FINDINGS: There is no evidence of acute intracranial hemorrhage or territorial infarction. No abnormal mass effect or midline shift is seen. Patel to white matter differentiation is well preserved. No extra-axial fluid collections are identified. The ventricles are normal in size for patient's age. Bilateral periventricular white matter patchy low-attenuation is again noted consistent with changes of chronic microangiopathy. The osseous structures and soft tissues are normal. The mastoid air cells and visualized portions of the paranasal sinuses are well aerated. IMPRESSION: No acute intracranial pathology. Specifically no evidence of acute intracranial hemorrhage. Changes of mild chronic microangiopathy.
[2016-08-28 14:52] VITALS: BP 124/74
== END 2016-08-28 14:53 ==
LOC: ERH 11:24
DX: S01.81XA Laceration without foreign body of other part of head, initial encounter (principal); T14.8 Other injury of unspecified body region; M79.622 Pain in left upper arm; W01.0XXA Fall on same level from slipping, tripping and stumbling without subsequent striking against object, initial encounter; Y93.01 Activity, walking, marching and hiking; Y92.9 Unspecified place or not applicable
CPT/HCPCS: 73030-LT; 73060-LT; 90471; 90714